=== PATIENT | male | born 1950 | race Caucasian/White ===

== ENCOUNTER 2022-12-12 18:20 | Emergency (ER) | payer MEDICARE, SELFPAY ==
[2022-12-12 18:28] VITALS: BP 187/95; PULSE 85; RESP 20; TEMP 36.8; O2SAT 98; BMI 28.3
--- NOTE | 2022-12-12 18:45 | ED.NURSE ---
16 Japanese Gastelum catheter placed in one insertion following sterile procedure. 850 clear yellow urine drained. Gastelum education provided.
[2022-12-12 19:02] LABS: Appearance Urine Clear (Clear); Bilirubin Urine Negative (Negative); Blood Urine 1+ (Negative); Color Urine Yellow (Yellow); Glucose Urine Trace (Negative); Ketones Urine Negative (Negative); Leukocyte Esterase Urine Negative (Negative); Nitrite Urine Negative (Negative); Protein Urine Negative (Negative); Specific Gravity Urine <= 1.005 (1.000-1.030); Urobilinogen Urine 0.2 (0.2-1.0)
[2022-12-12 19:19] LABS: RBC Urine 0-2 (0-2); WBC Urine 0-2 (0-5)
--- NOTE | 2022-12-12 20:14 | ED.MALEGU ---
HPI - Male Genitourinary General Date Seen: 12/12/22 Chief complaint: Urogenital Problems, Male Stated complaint: Unable to urinate Time Seen by Provider: 12/12/22 18:33 Source: patient Mode of arrival: ambulatory Limitations: no limitations History of Present Illness HPI Narrative: Patient is a very nice 72-year-old gentleman who presents here with a chief complaint can not being able to pee, this is been just for today, he has never before had this in the past, he does know why this occurred denies any dysuria frequency fevers chills or sweats he is not taking any [id number] cold medications, there has been no change in his more recent medications also. Just today he cannot pee. He does have a history of mild prostatism, gets up a couple times is P at night, but otherwise is okay. Related Data Home Medications Medication Instructions Recorded Confirmed atorvastatin 40 mg tablet 40 mg PO DAILY 12/12/22 12/12/22 lisinopril 5 mg tablet 5 mg PO DAILY 12/12/22 12/12/22 metoprolol tartrate 25 mg tablet 25 mg PO BID 12/12/22 12/12/22 Previous Rx's Medication Instructions Recorded tamsulosin 0.4 mg capsule (Flomax) 0.4 mg PO DAILY #14 caps 12/12/22 Allergies Allergy/AdvReac Type Severity Reaction Status Date / Time No Known Drug Allergies Allergy Verified 12/12/22 18:28 Review of Systems Status of ROS: Reports: 10 or more systems reviewed and unremarkable except as noted in History and below Exam Narrative: Exam Narrative: Patient is seen in room 5, he is in no apparent distress, a huge amount urine was in his bladder, bladder scan, it is now out, he has a catheter in place. He feels much improved, abdomen is otherwise soft there is no guarding, scar from previous right-sided inguinal hernia surgery is noted. Bowel sounds are normal no organomegaly no CVA tenderness, normal male genitalia. Const: Vital Signs, click to edit/add: Vital Signs - 24 hr 12/12/22 18:28 Temperature 98.2 F Pulse Rate [Pulse Oximeter] 85 Respiratory Rate 20 Blood Pressure [Ri ght Upper Arm] 187/95 H Pulse Oximetry 98 Oxygen Delivery Me thod Room Air Course Vital Signs Vital signs: Initial Vital Signs Temperature 98.2 F 12/12/22 18:28 Temperature Source Temporal Artery Scan 12/12/22 18:28 Pulse Rate 85 12/12/22 18:28 Respiratory Rate 20 12/12/22 18:28 Blood Pressure 187/95 H 12/12/22 18:28 Blood Pressure Mean 125 12/12/22 18:28 Pulse Oximetry 98 12/12/22 18:28 Oxygen Delivery Method Room Air 12/12/22 18:28 Vital Signs Temperature 98.2 F 12/12/22 18:28 Pulse Rate 85 12/12/22 18:28 Respiratory Rate 20 12/12/22 18:28 Blood Pressure 187/95 H 12/12/22 18:28 Pulse Oximetry 98 12/12/22 18:28 Oxygen Delivery Method Room Air 12/12/22 18:28 Temperature 98.2 F 12/12/22 18:28 Pulse Rate 85 12/12/22 18:28 Respiratory Rate 20 12/12/22 18:28 Blood Pressure 187/95 H 12/12/22 18:28 Pulse Oximetry 98 12/12/22 18:28 Oxygen Delivery Method Room Air 12/12/22 18:28 MDM - Male Genitourinary MDM Narrative Medical decision making narrative: I discussed with him that I would put him on Flomax, this will help him hopefully when the catheter comes out, he will need to call his primary care clinic to see if they get a minute do this otherwise some of the primary care clinics to not take 0 catheters, he will have to go downtown to Urology. I recommended that stays in for the next 3-4 days, there is no evidence of any infection on his UA. Medical Records Attestation: I reviewed the patient's medical records. Lab Data Attestation: I reviewed the patient's lab results. Labs: Lab Results 12/12/22 Range/Units 18:55 Urine Color Yellow (Yellow) Urine Appearance Clear (Clear) Urine pH 5.0 (5.0-8.5) Ur Specific [place] <= 1.005 (1.000-1.030) Urine Protein Negative (Negative) Urine Glucose (UA) Trace A (Negative) Urine Ketones Negative (Negative) Urine Blood 1+ A (Negative) Urine Nitrite Negative (Negative) Urine Bilirubin Negative (Negative) Urine Urobilinogen 0.2 (0.2-1.0) Ur Leukocyte Esterase Negative (Negative) Urine RBC 0-2 (0-2) Urine WBC 0-2 (0-5) Ur Squamous Epith Cells None (None-Few) Urine Bacteria None (None) Discharge Plan Discharge Clinical Impression: Acute retention of urine Patient Disposition: Home, Self-Care Condition: Stable Instructions: Urinary Retention in Men (ED), Gastelum Catheter Placement and Care (ED), Gastelum Catheter Removal (DC), How to Change a Catheter Drainage Bag (DC) Additional Instructions: Home rest use of medications as directed, the Flomax will hopefully helps somewhat shrink your prostate, please make an appointment with your primary care group, or alternatively a urologist up in the [facility], please note to some of the primary care groups such as [facility] do not take of catheters, and request that you go [facility] to the [facility] to see a urologist. Catheter should come out the next 3-4 days, Activity Level: No Restrictions Prescriptions: New tamsulosin [Flomax] 0.4 mg capsule 0.4 mg PO DAILY Qty: 14 2RF No Action atorvastatin 40 mg tablet 40 mg PO DAILY lisinopril 5 mg tablet 5 mg PO DAILY metoprolol tartrate 25 mg tablet 25 mg PO BID Follow Up/Referrals: Fabio Fox MD [Referring] - George Borges MD [Staff Physician] - Negrito Whelan MD [Staff Physician] - Jaspreet Pena MD [Referring] - Alen Merida MD [Referring] - Stand Alone Forms: [employer] Info Instructions
[2022-12-12] MEDS: TAMSULOSIN HCL 0.4 MG CAPSULE PO (20:46)
== END 2022-12-12 21:37 | disposition home or self-care (01) ==
LOC: ED 20:05
PROVIDERS: Emergency Provider Family Medicine; PCP Family Medicine
DX: R33.9 Retention of urine, unspecified (principal)
CPT/HCPCS: 51702; 81001; 99283; A9270

== ENCOUNTER 2022-12-21 05:09 | Emergency (ER) | payer MEDICARE, SELFPAY ==
[2022-12-21 05:16] VITALS: BP 183/93; PULSE 87; RESP 16; TEMP 36.7; O2SAT 99; BMI 28.3
--- NOTE | 2022-12-21 05:17 | ED.GENADULT ---
HPI - General Adult General Time Seen by Provider: 05:18 Date Seen: 12/21/22 Chief complaint: Urogenital Problems, Male Stated complaint: Unable to pass urine since midnight Time Seen by Provider: 12/21/22 05:13 Source: patient, RN notes reviewed and old records reviewed Mode of arrival: ambulatory Limitations: no limitations History of Present Illness HPI narrative: 72-year-old male who comes in with difficulty urinating. He says he has not been able to urinate since midnight. Patient was seen with urinary retention on December 12, at that time catheter was placed and patient was started on Flomax. Catheter was removed today with [place] [facility], patient was able to urinate when the catheter was 1st removed and then gradually has had more more difficulty initiating stream in with sensation of incomplete emptying, to the point now he feels bladder fullness is unable to void. Denies any medications, denies fever chills or chills, denies flank pain. No constipation, no sensation of pelvic fullness. Related Data Home Medications Medication Instructions Recorded Confirmed atorvastatin 40 mg tablet 40 mg PO DAILY 12/12/22 12/21/22 lisinopril 5 mg tablet 5 mg PO DAILY 12/12/22 12/21/22 metoprolol tartrate 25 mg tablet 25 mg PO BID 12/12/22 12/21/22 Previous Rx's Medication Instructions Recorded tamsulosin 0.4 mg capsule (Flomax) 0.4 mg PO DAILY #14 caps 12/12/22 Allergies Allergy/AdvReac Type Severity Reaction Status Date / Time No Known Drug Allergies Allergy Verified 12/12/22 18:28 PFSH [facility] Medical History (Updated 12/21/22 @ 05:17 by Hamlet Madden RN) Acute myocardial infarction ?I21.9 - Acute myocardial infarction, unspecified (ICD-10) CAD (coronary artery disease) ?I25.10 - Atherosclerotic heart disease of [place] coronary artery without angina pectoris (ICD-10) Hypertension ?I10 - Essential (primary) hypertension (ICD-10) Surgical History (Updated 12/21/22 @ 05:17 by Hamlet Madden RN) History of hernia repair ?Z98.890 - Other specified postprocedural states (ICD-10) ?Z87.19 - Personal history of other diseases of the digestive system (ICD-10) History of PTCA ?Z98.61 - Coronary angioplasty status (ICD-10) History of tonsillectomy ?Z90.89 - Acquired absence of other organs (ICD-10) Social History Smoking Status: Never smoker Second hand tobacco smoke exposure: No How often do you have a drink containing alcohol: never How often do you have six or more drinks on one occasion: Never AUDIT-C Alcohol total score: 0 Non-prescribed substance use: denies use Exam Narrative: Exam Narrative: General: well nourished , NAD Head: Atraumatic and normocephalic ENT: External ears and external nose are normal Eyes: Conjunctiva clear, pupils are equal reactive, external ocular motions are intact Neck: Full spontaneous range of motion of the neck Lungs: No respiratory distress Musculoskeletal: No tenderness or deformity Neurologic: No gross focal neurologic deficits Skin: No rashes Psych: Mood and affect are appropriate Abdomen: Distended with bladder palpable at the umbilicus Course Course Hospital Course: Patient seen and examined, prior records reviewed. Patient presents with urinary retention after having the catheter removed today. On exam, pleasant and appears little uncomfortable. Suprapubic tenderness with bladder palpable at the umbilicus. Bladder scan of about 600 mL. Catheter will be placed and patient will be discharged with this in place, should call Urology. Discharge Plan Discharge Prescriptions: No Action atorvastatin 40 mg tablet 40 mg PO DAILY lisinopril 5 mg tablet 5 mg PO DAILY metoprolol tartrate 25 mg tablet 25 mg PO BID tamsulosin [Flomax] 0.4 mg capsule 0.4 mg PO DAILY Qty: 14 2RF Follow Up/Referrals: Alen Do MD [Primary Care Provider] -
[2022-12-21 05:37] VITALS: BP 165/74; PULSE 78; RESP 16; TEMP 36.7; O2SAT 99
[2022-12-21 05:48] LABS: Appearance Urine Slightly Cloudy (Clear); Bilirubin Urine Negative (Negative); Blood Urine 2+ (Negative); Color Urine Yellow (Yellow); Glucose Urine 1+ (Negative); Ketones Urine Negative (Negative); Leukocyte Esterase Urine Negative (Negative); Nitrite Urine Negative (Negative); Protein Urine Negative (Negative); Urobilinogen Urine 0.2 (0.2-1.0); pH Urine 5.5 (5.0-8.5)
[2022-12-21 05:54] VITALS: BP 165/74; PULSE 78; RESP 16; TEMP 36.7
[2022-12-21 05:58] LABS: Bacteria Urine Few; Mucus Urine Few; RBC Urine 0-2 (0-2); Squamous Epithelial Cell Urine Few (None-Few); WBC Urine 0-2 (0-5)
== END 2022-12-21 05:55 | disposition home or self-care (01) ==
LOC: ED 05:39
PROVIDERS: Emergency Provider Family Medicine; PCP Family Medicine
DX: N13.9 Obstructive and reflux uropathy, unspecified (principal)
CPT/HCPCS: 51702; 81001; 87086; 99283

== ENCOUNTER 2022-12-21 10:00 | Emergency (ER) | payer MEDICARE, SELFPAY ==
--- NOTE | 2022-12-21 11:35 | ED.NURSE ---
cody draining well. pt decided to leave wtihout seeing
--- NOTE | 2022-12-21 11:45 | PC.NURSE ---
Brought pt in for triage assessment. Pt stated he was seen in ED this am and new ross catheter was placed. ED staff sent him home with securement device and pt forgot to secure catheter tubing. While standing up pt tubing tugged around arm of chair. Pt concerned catheter dislodged, pt denies pain. Discussed allowing time to see if catheter drains urine, clear normal urine noted in catheter bag and tubing. Pt agrees to allowing time and requests not to be seen if he is able to note new urine in catheter tubing. Pt approached nurse after 20 minutes to report that he would like to leave without being seen as he felt his issue resolved and normal urine was noted in tubing. Nurse requested pt to take time before he left to secure the tubing with securement device and ask if assistance was needed. Pt later reports tubing secured with no concerns. Nurse again asked pt to verbalize understanding regarding his choice to be seen and pt denied wanting to be seen in ED.
== END 2022-12-21 11:48 | disposition home or self-care (01) ==
PROVIDERS: Emergency Provider Student in an Organized Health Care Education/Training Program; PCP Family Medicine
DX: Z53.21 Procedure and treatment not carried out due to patient leaving prior to being seen by health care provider (principal)

== ENCOUNTER 2023-03-12 07:35 | Emergency (ER) | payer MEDICARE, SELFPAY ==
[2023-03-12 07:42] VITALS: BP 154/86; PULSE 68; RESP 18; TEMP 36.1; O2SAT 99; BMI 27.5
--- NOTE | 2023-03-12 08:12 | ED.NURSE ---
ua was obtained using aseptic technique at the catheter port. urine in bag obviously cloudy with some mucus settlement.
[2023-03-12 08:25] LABS: Appearance Urine Cloudy (Clear); Bilirubin Urine Negative (Negative); Color Urine Light yellow (Yellow); Glucose Urine Negative (Negative); Ketones Urine Negative (Negative)
[2023-03-12 08:26] LABS: Blood Urine 3+ (Negative); Specific Gravity Urine 1.005 (1.000-1.030)
[2023-03-12 08:27] LABS: Leukocyte Esterase Urine 3+ (Negative); Nitrite Urine Negative (Negative); Protein Urine Trace (Negative); Urobilinogen Urine 0.2 (0.2-1.0)
[2023-03-12 08:35] LABS: Bacteria Urine Many; RBC Urine 25-50 (0-2); Squamous Epithelial Cell Urine Few (None-Few); WBC Urine >100 (0-5)
--- NOTE | 2023-03-12 08:47 | ED_ITS ---
HPI - General Adult General Date Seen: 03/12/23 Chief complaint: Urogenital Problems, Male Stated complaint: has catheter and concerned of bladder infection Time Seen by Provider: 03/12/23 08:01 Source: patient Mode of arrival: ambulatory Limitations: no limitations History of Present Illness HPI narrative: Patient is a 72-year-old male who has had an indwelling catheter for a couple of months now secondary to urinary retention. He is deciding whether not to have surgery. Over the past couple of days since having a new catheter placed, he has developed cloudy urine, little bit of pain over the bladder. Has not had any fevers or chills although sometimes he feels warm. No flank pain or vomiting. Concerned about possible infection. No hematuria. Related Data Home Medications Medication Instructions Recorded Confirmed atorvastatin 40 mg tablet 40 mg PO DAILY 12/12/22 12/21/22 lisinopril 5 mg tablet 5 mg PO DAILY 12/12/22 12/21/22 metoprolol tartrate 25 mg tablet 25 mg PO BID 12/12/22 12/21/22 Previous Rx's Medication Instructions Recorded tamsulosin 0.4 mg capsule (Flomax) 0.4 mg PO DAILY #14 caps 12/12/22 cephalexin 500 mg capsule 500 mg PO QID #28 caps 03/12/23 Allergies Allergy/AdvReac Type Severity Reaction Status Date / Time No Known Drug Allergies Allergy Verified 12/12/22 18:28 Review of Systems Status of ROS: Reports: 6 or more systems reviewed and unremarkable except as noted in History and below PFSH PFS Medical History Acute myocardial infarction ?I21.9 - Acute myocardial infarction, unspecified (ICD-10) CAD (coronary artery disease) ?I25.10 - Atherosclerotic heart disease of [place] coronary artery without angina pectoris (ICD-10) Hypertension ?I10 - Essential (primary) hypertension (ICD-10) Surgical History History of PTCA ?Z98.61 - Coronary angioplasty status (ICD-10) History of hernia repair ?Z98.890 - Other specified postprocedural states (ICD-10) ?Z87.19 - Personal history of other diseases of the digestive system (ICD-10) History of tonsillectomy ?Z90.89 - Acquired absence of other organs (ICD-10) Social History Smoking Status: Current some day smoker What tobacco products do you use: cigars Do you use any of these nicotine containing products: None Second hand tobacco smoke exposure: No How often do you have a drink containing alcohol: 4 or more times a week How many standard drinks containing alcohol do you have on a typical day: 1 or 2 How often do you have six or more drinks on one occasion: Never AUDIT-C Alcohol total score: 4 Non-prescribed substance use: denies use service: No Exam Narrative: Exam Narrative: Vital signs reviewed. In general, an alert, well-appearing elderly male. Abdomen soft nontender. Back no CVA tenderness. Skin is warm and dry. Catheter in place with purulent-appearing urine. Const: Vital Signs, click to edit/add: Vital Signs - 24 hr 03/12/23 07:42 Temperature 97 F L Pulse Rate [Pulse Oximeter] 68 Respiratory Rate 18 Blood Pressure [Le ft Upper Arm] 154/86 H Pulse Oximetry 99 Oxygen Delivery Me thod Room Air Documenting provider has reviewed patient's vital signs: yes Course Course Hospital Course: UA was sent, consistent with infection with greater than 100 white blood cells and 25-50 red blood cells, many bacteria. Certainly appears infected in the catheter. I recommended replacement of the catheter, antibiotics. We discussed that ideally a decision would be made as to management of the underlying problem so that he does not need to keep the catheter in permanently. Return for worsening symptoms of infection such as fevers, chills, vomiting, flank pain. Culture pending. Vital Signs Vital signs: Initial Vital Signs Temperature 97 F L 03/12/23 07:42 Temperature Source Temporal Artery Scan 03/12/23 07:42 Pulse Rate 68 03/12/23 07:42 Pulse Rhythm Regular 03/12/23 07:42 Respiratory Rate 18 03/12/23 07:42 Blood Pressure 154/86 H 03/12/23 07:42 Blood Pressure Mean 108 H 03/12/23 07:42 Blood Pressure Position Standing 03/12/23 07:42 Pulse Oximetry 99 03/12/23 07:42 Oxygen Delivery Method Room Air 03/12/23 07:42 Vital Signs Temperature 97 F L 03/12/23 07:42 Pulse Rate 68 03/12/23 07:42 Respiratory Rate 18 03/12/23 07:42 Blood Pressure 154/86 H 03/12/23 07:42 Pulse Oximetry 99 03/12/23 07:42 Oxygen Delivery Method Room Air 03/12/23 07:42 Temperature 97 F L 03/12/23 07:42 Pulse Rate 68 03/12/23 07:42 Respiratory Rate 18 03/12/23 07:42 Blood Pressure 154/86 H 03/12/23 07:42 Pulse Oximetry 99 03/12/23 07:42 Oxygen Delivery Method Room Air 03/12/23 07:42 Medical Decision Making Lab Data Labs: Lab Results 03/12/23 Range/Units 08:10 Urine Color Light yellow (Yellow) Urine Appearance Cloudy A (Clear) Urine pH 6.0 (5.0-8.5) Ur Specific [place] 1.005 (1.000-1.030) Urine Protein Trace A (Negative) Urine Glucose (UA) Negative (Negative) Urine Ketones Negative (Negative) Urine Blood 3+ A (Negative) Urine Nitrite Negative (Negative) Urine Bilirubin Negative (Negative) Urine Urobilinogen 0.2 (0.2-1.0) Ur Leukocyte Esterase 3+ A (Negative) Urine RBC 25-50 A (0-2) Urine WBC >100 A (0-5) Ur Squamous Epith Cells Few (None-Few) Urine Bacteria Many A (None) Discharge Plan Discharge Clinical Impression: Urinary tract infection Patient Disposition: Home, Self-Care Condition: Stable Instructions: Catheter-associated Urinary Tract Infection (ED) Additional Instructions: Antibiotic as prescribed. Return for new symptoms such as fever, shaking chills, vomiting, flank pain. We will call if culture reveals a need for antibiotic change. Urology follow-up as planned. Prescriptions: New cephalexin 500 mg capsule 500 mg PO QID Qty: 28 0RF No Action atorvastatin 40 mg tablet 40 mg PO DAILY lisinopril 5 mg tablet 5 mg PO DAILY metoprolol tartrate 25 mg tablet 25 mg PO BID tamsulosin [Flomax] 0.4 mg capsule 0.4 mg PO DAILY Qty: 14 2RF Follow Up/Referrals: Alen Do MD [Primary Care Provider] - Stand Alone Forms: [employer] Info Instructions
--- NOTE | 2023-03-12 09:00 | ED.NURSE ---
Ross catheter was replaced with #18 ross -easily replaced. was given new leg strap and does not use a leg bag.
== END 2023-03-12 09:25 | disposition home or self-care (01) ==
PROVIDERS: Emergency Provider Emergency Medicine; PCP Family Medicine
DX: N39.0 Urinary tract infection, site not specified (principal)
CPT/HCPCS: 51702; 81001; 87086; 87186; 99283; 99284

== ENCOUNTER 2024-06-27 08:50 | Emergency (ER) | payer MEDICARE, SELFPAY ==
[2024-06-27] VITALS (10 sets, daily range): BP systolic 118–153; BP diastolic 85–99; PULSE 57–76; RESP 20; TEMP 36.2; O2SAT 92–99; BMI 27.5
--- NOTE | 2024-06-27 09:37 | CRLHL7_ITS ---
For Patients: As a result of the Century Cures Act, medical imaging exams and procedure reports are released immediately into your electronic medical record. You may view this report before your referring provider. If you have questions, please contact your health care provider. Indication: Orthopnea Technique: Chest 2 views Comparison: None Findings/Impression: Cardiovascular and mediastinum: Normal heart size with atherosclerotic calcification. Lungs and pleural spaces: Trace bilateral pleural effusions with pulmonary cephalization and reticular interstitial prominence consistent with pulmonary edema. Bones and soft tissues: No significant findings. Dictated by Johnny Sanchez MD @ 06/27/2024 9:59:24 AM (Electronically Signed)
--- NOTE | 2024-06-27 09:38 | ED_ITS ---
HPI - General Adult General Chief complaint: Shortness of Breath/Dyspnea Stated complaint: Shortness of breath Time Seen by Provider: 06/27/24 09:13 History of Present Illness HPI narrative: This 73-year-old male comes in reporting episodes of shortness of breath that occur a couple times a week for the past couple months. These always occur at night when laying down. He states that he feels like it is difficult to take a good breath. He gets relief if he gets up and walks around. He does not report any chest pain, nausea, vomiting, lightheadedness , or diaphoresis. He does not have any exercise intolerance. He does have a cardiac history with stents placed going back 18 years ago. Related Data Home Medications ?Medication ?Instructions ?Recorded ?Confirmed atorvastatin 40 mg tablet 40 mg PO DAILY 12/12/22 12/21/22 lisinopril 5 mg tablet 5 mg PO DAILY 12/12/22 12/21/22 metoprolol tartrate 25 mg tablet 25 mg PO BID 12/12/22 12/21/22 Previous Rx's ?Medication ?Instructions ?Recorded tamsulosin 0.4 mg capsule (Flomax) 0.4 mg PO DAILY #14 caps 12/12/22 cephalexin 500 mg capsule 500 mg PO QID #28 caps 03/12/23 furosemide 20 mg tablet (Lasix) 20 mg PO DAILY #10 tabs 06/27/24 Allergies Allergy/AdvReac Type Severity Reaction Status Date / Time No Known Drug Allergies Allergy Verified 12/12/22 18:28 Review of Systems Status of ROS: Reports: 10 or more systems reviewed and unremarkable except as noted in History and below Narrative: Constitutional: No fevers, no weight gain or loss. Eyes: No discharge. No vision changes. HENT: No congestion, no sore throat, no ear pain. Cardiovascular: No chest pain, no palpitations. Respiratory: No wheezes, no cough. Orthopnea as described above. Gastrointestinal: No abdominal pain, no vomiting, no diarrhea. Genitourinary: No dysuria, no hematuria. Musculoskeletal: Normal range of motion. Skin: No rashes, no pruritis. Neurological: No dizziness, weakness, sensory change, speech change. Endo/Heme/Allergies: No bruising or bleeding. No polydipsia. Pysch: no suicidality, no anxiety, no insomnia. All other systems reviewed and are negative. [facility] Medical History Acute myocardial infarction ?I21.9 - Acute myocardial infarction, unspecified (ICD-10) CAD (coronary artery disease) ?I25.10 - Atherosclerotic heart disease of [place] coronary artery without angina pectoris (ICD-10) Hypertension ?I10 - Essential (primary) hypertension (ICD-10) Surgical History History of PTCA ?Z98.61 - Coronary angioplasty status (ICD-10) History of hernia repair ?Z98.890 - Other specified postprocedural states (ICD-10) ?Z87.19 - Personal history of other diseases of the digestive system (ICD-10) History of tonsillectomy ?Z90.89 - Acquired absence of other organs (ICD-10) Social History Smoking Status: Current some day smoker What tobacco products do you use: cigars Do you use any of these nicotine containing products: None Second hand tobacco smoke exposure: No How often do you have a drink containing alcohol: 4 or more times a week How many standard drinks containing alcohol do you have on a typical day: 1 or 2 How often do you have six or more drinks on one occasion: Never AUDIT-C Alcohol total score: 4 Non-prescribed substance use: denies use service: No Exam Narrative: Exam Narrative: Constitutional: Well-developed, well-nourished, no acute distress. HEENT: Normocephalic, atraumatic. Neck: Normal range of motion. Nontender. Supple. Heart: Regular. No murmurs. Normal rate. Intact distal pulses. Lungs: Clear to auscultation. No chest discomfort. No wheezes, rhonchi, or rales. Abdomen: Normal bowel sounds. Nontender. No rebound tenderness. Genitalia: Deferred. Back: No midline tenderness. Normal range of motion. Extremities: Normal range of motion. No injury. Mild pedal edema. Skin: Intact. No rash. Warm. No erythema or pallor. Neurologic: No altered sensation. No weakness. Alert and oriented. Psychiatric: No suicidality. No anxiety or depression. No insomnia. Nursing notes and vitals signs are reviewed. Const: Vital Signs, click to edit/add: Vital Signs - 24 hr 06/27/24 09:03 06/27/24 09:24 06/27/24 09:30 Temperature 97.2 F L Pulse Rate 76 69 Pulse Rate [Pulse Oximeter] 72 Respiratory Rate 20 Blood Pressure Blood Pressure [Le ft Upper Arm] 153/92 H Pulse Oximetry 97 99 97 Oxygen Delivery Me thod Room Air 06/27/24 09:33 06/27/24 09:33 06/27/24 09:34 Temperature Pulse Rate 70 70 67 Pulse Rate [Pulse Oximeter] Respiratory Rate Blood Pressure 140/99 H 140/99 H Blood Pressure [Le ft Upper Arm] Pulse Oximetry 98 98 96 Oxygen Delivery Me thod 06/27/24 10:00 06/27/24 10:30 06/27/24 10:35 Temperature Pulse Rate 69 58 L 60 Pulse Rate [Pulse Oximeter] Respiratory Rate Blood Pressure Blood Pressure [Le ft Upper Arm] Pulse Oximetry 94 94 92 Oxygen Delivery Me thod 06/27/24 10:36 06/27/24 10:37 Temperature Pulse Rate 59 L 57 L Pulse Rate [Pulse Oximeter] Respiratory Rate Blood Pressure 118/85 Blood Pressure [Le ft Upper Arm] Pulse Oximetry 97 96 Oxygen Delivery Me thod Course Vital Signs Vital signs: Initial Vital Signs Respiratory Effort Normal 06/27/24 08:59 Respiratory Depth Normal 06/27/24 08:59 Respiratory Pattern Normal 06/27/24 08:59 Vital Signs Temperature 97.2 F L 06/27/24 09:03 Pulse Rate 72 06/27/24 09:03 Respiratory Rate 20 06/27/24 09:03 Blood Pressure 153/92 H 06/27/24 09:03 Pulse Oximetry 97 06/27/24 09:03 Oxygen Delivery Method Room Air 06/27/24 09:03 Temperature 97.2 F L 06/27/24 09:03 Pulse Rate 57 L 06/27/24 10:37 Respiratory Rate 20 06/27/24 09:03 Blood Pressure 118/85 06/27/24 10:37 Pulse Oximetry 96 06/27/24 10:37 Oxygen Delivery Method Room Air 06/27/24 09:03 Medical Decision Making MDM Narrative Medical decision making narrative: This patient comes in reporting episodes of orthopnea that is relieved with getting up in the night. These have been happening a couple times a week roughly over the past couple months. He does not have any chest pain, nausea, vomiting, lightheadedness, or diaphoresis. He does not report any exercise intolerance. Chest x-ray today does show trace elements of pulmonary edema. He does have some mild pedal edema also. Lab results are all reassuring. His EKG is normal and B type nitrate peptide and troponin are both in normal range. These results are reassuring to the patient. He is okay to be discharged home. I did provide a prescription for 10 tablets of Lasix with hopes that a short- term of a diarrhetic will help his symptoms. I did also explain there is typically an anxiety component when a person feel short of breath. If not improved he should follow up with his primary physician for ongoing management. Lab Data Labs: Lab Results 06/27/24 Range/Units 10:00 WBC 7.98 (4.50-11.00) K/uL RBC 4.51 (4.30-5.90) m/uL Hgb 14.5 (13.5-17.5) gm/dL Hct 42.1 (37.0-53.0) % MCV 93 (80-100) fL MCH 32 (26-34) pg MCHC 34 (32-36) gm/dL RDW Coeff of Chao 11.9 (11.5-15.5) % Plt Count 193 (140-440) K/uL Neut % (Auto) 65.9 (42.0-72.0) % Lymph % (Auto) 21.7 (20-44) % [place] % (Auto) 8.9 (0.0-11.0) % Eos % (Auto) 2.4 (0.0-7.0) % Baso % (Auto) 0.6 (0.0-3.0) % Neut # (Auto) 5.26 (1.7-7.0) K/uL Lymph # (Auto) 1.73 (0.90-2.90) K/uL [place] # (Auto) 0.70 (0.00-0.90) K/UL Eos # (Auto) 0.19 (0.00-0.50) K/uL Baso # (Auto) 0.05 (0.00-0.30) K/uL Abs Immat Gran (auto) 0.04 (0.00-0.30) K/uL Imm/Tot Granulo (auto) 0.5 % Sodium 137 (135-149) mmol/L Potassium 4.1 (3.6-5.1) mmol/L Chloride 102 (96-114) mmol/L Carbon Dioxide 26 (20-32) mmol/L Anion Gap 9 (7-15) mEq/L BUN 14 (7-30) mg/dL Creatinine 0.8 (0.5-1.5) mg/dL Estimated Creat Clear 58.08 Estimated GFR 94 ml/min Glucose 184 H (60-115) mg/dL Calcium 9.5 (8.4-10.6) mg/dL NT-Pro-B Natriuret Pep 1000 pg/mL POC Troponin I 0.01 (0.01-0.04) ng/ml Imaging Data Chest x-ray: Radiologist's impression: Cardiovascular and mediastinum: Normal heart size with atherosclerotic calcification. Lungs and pleural spaces: Trace bilateral pleural effusions with pulmonary cephalization and reticular interstitial prominence consistent with pulmonary edema. Bones and soft tissues: No significant findings. ECG Data Attestation: I personally reviewed and interpreted this ECG as follows: Interpretation: Normal sinus rhythm. Rate is 66 beats per minute. There are no ST or T-wave abnormalities. Discharge Plan Discharge Clinical Impression: Orthopnea Additional Instructions: Take medication as prescribed. Follow up with primary physician for ongoing management. Return if worsening. Prescriptions: New furosemide [Lasix] 20 mg tablet 20 mg PO DAILY Qty: 10 2RF No Action atorvastatin 40 mg tablet 40 mg PO DAILY lisinopril 5 mg tablet 5 mg PO DAILY metoprolol tartrate 25 mg tablet 25 mg PO BID tamsulosin [Flomax] 0.4 mg capsule 0.4 mg PO DAILY Qty: 14 2RF cephalexin 500 mg capsule 500 mg PO QID Qty: 28 0RF Follow Up/Referrals: Alen Do MD [Primary Care Provider] - Stand Alone [facility] Inst[facility]
--- OUTSIDE RECORDS SUMMARY | 2024-06-27 09:44 | XMS_ITS | Clinical Summary ---
Author Organization [employer] Address [place], [place] [address] Care Team Providers Care Test Baker Name Role Phone JohntelAlen MD Primary Care Provider + Allergies No known active allergies Medications Medication Sig Dispensed Refills Start Date End Date Status aspirin enteric coated 81 mg tabletIndications:Ac [place] myocardial infarction of other inferior wall, initial episode of care Take 1 tablet by mouth once daily with a meal. 0 02/04/2014 Active multivitamins-minera ls-lutein (CENTRUM SILVER) 0.4-300-250 mg-mcg-mcg tab Take 1 tablet by mouth once daily. 0 04/18/2019 Active medication order [employer] immune formula, 1 tablet every other day 0 05/29/2020 Active nitroglycerin (NITROSTAT) 0.4 mg sublingual tabletIndications:Co ronary artery disease involving [place] si[place] coronary artery of ass[place] sioux heart without angina pectoris Place 1 Tablet (0.4 mg) under the tongue every 5 minutes if needed (Place 1 tablet under tongue every 5 min as needed). 25 Tablet 2 08/12/2022 Active metoprolol tartrate (LOPRESSOR) 25 mg tabletIndications:Hy pertension, unspecified type Take 1 Tablet (25 mg) by mouth two times daily. 180 Tablet 3 02/07/2024 Active lisinopriL (PRINIVIL; ZESTRIL) 10 mg tabletIndications:HT N (hypertension),BPH with urinary obstruction Take 1 Tablet (10 mg) by mouth once daily. 90 Tablet 3 02/07/2024 Active atorvastatin (LIPITOR) 40 mg tabletIndications:Co ronary artery disease involving [place] coronary artery of [place] heart without angina pectoris TAKE 1 TABLET(40 MG) BY MOUTH EVERY DAY 90 Tablet 3 02/07/2024 Active Active Problems Problem Noted Date Diagnosed Date Prediabetes 01/17/2012 CAD (coronary artery disease) 11/24/2009 Other and unspecified hyperlipidemia 10/13/2006 Overview (10/13/2006): - current lipid status unknown HTN (hypertension) Resolved Problems Problem Noted Date Diagnosed Date Resolved Date Acute myocardial infarction of other inferior wall, initial episode of care 10/13/2006 08/12/2022 Overview (10/13/2006): - Inferior STEMI - to director of cardiac cath lab 10/13/06: s/p PCI with BMS to RCA, angioplasty of rPAV, rPL2 - rPL1 distal occlusion could not be crossed - Other angio findings: mid lad 50-60%, prox D1 85%, ostial D2 40% 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 10/13/2006 08/12/2022 Overview (10/13/2006): - 10/13/06: EF 40% with severe hypokinesis by LV gram Immunizations Name Administration Dates Next Due AMB Influenza, IIV3 (Age >=3 years)(Flu Clinic Only) 07/19/2013,06/29/2012,06/14/2011 AMB Influenza, IIV4 PF (=>6 mos Flulaval,Fluzone Fluarix)(Flu Clinic Only) 07/07/2018 COVID-19 vaccine ([place] NTech 30mcg/0.3mL) 12YO+ BIVALENT PF, MDV 08/12/2022 COVID-19 vaccine ([place] NTech 30mcg/0.3mL) PF, MDV 11/10/2021,06/16/2021,04/28/2021 Influenza A (H1N1), Inactivated 11/24/2009 Influenza A (H1N1), Inactiva claudio (Age >=3 Years) 11/24/2009 Influenza, High-dose Inactivated 05/30/2017 Influenza, IIV3 (Age 6-35 mos) 06/14/2011,2008 Influenza, IIV3 (Age >=3 years) 06/03/20 10,06/12/2008,07/17/2007,2005,07/14/2005 Influenza, IIV4 05/17/2016,07/17/2015 Influenza, Inactivated AIIV4 (Age 65+ Years) Preserv Free 08/12/2022,06/24/2021,05/29/2020 Pneumococcal Poly,23-Valent (Pneumovax) 05/29/2020,10/17/2008 Pneumococcal conj 13-Valent (Prevnar 13) 04/18/2019 Td (Age >=7 Years) 04/18/2019 Tdap 10/17/2008 Zoster (Shingrix-RZV, recombinant) 10/01/2019, Family History Medical History Relation Name Comments Psychiatric illness Brother Phil Bipolar Heart Disease Father age 66 of ID, in his sleep Heart Disease Mother Tracee Other Mother Tracee age 82, ru ptured diverticulitis Psychiatric illness Mother Tracee Englei on Relation Name Status Comments Brother Phil Father Mother Tracee Social History Tobacco Use Types Packs/Day Years Used Date Smoking Tobacco: Some Days Cigars Smokeless Tobacco: Never Tobacco Cessation:Ready to Q uit: No; Counseling Given: Yes Comments:Occ, 1 per week Alcohol Use Standard Drinks/Week Comments Yes 13.3 (1 standard drink = 0.6 oz pure alcohol) 14 drinks per week PHQ-2 Answer Date Recorded PHQ-2 TOTAL SCORE 2 02/07/2024 Social Connections Answer Date Recorded Frequency of Communication with Friends and Fami ly Not on file 05/13/2024 Financial Resource Strain Answer Date R ecorded Difficulty of Paying Living Expenses 3 05/05/2023 Difficulty of Paying Living Expenses Not on file 05/05/2023 Food Insecurity Answer Date Recorded Worried About Running Out of Food in the Last Ye ar 1 05/05/2023 Transportation Needs Answer Date Record ed Lack of Transportation (Medical) 1 05/05/2023 Housing Stability Answer Date Recorded Unable to Pay for Housing in the Last Year 1 05/05/2023 Sex and Gender Information Value Date Recorded Sex Assigned at Not on file Gender Identity Not on file Sexual Orientation Not on file Obstetrics History Last Filed Vital Signs Vital Sign Reading Time Taken Comments Blood Pressure 138/84 02/07/2024 10:40 AM CDT Pulse 70 02/07/2024 9:36 AM CDT Temperature 36.9 ??C (98.4 ??F) 02/07/2024 9:36 AM CD T Respiratory Rate 16 03/31/2023 10:56 AM CDT Oxygen Saturation 99% 02/07/2024 9:36 AM CDT Inhaled Oxygen Concentration - - Weight 73.7 kg (162 lb 8 oz) 02/07/2024 9:36 AM CDT Height 160.8 cm (5' 3.3) 02/07/2024 9:36 AM CDT Body Mass Index 28.51 02/07/2024 9:36 AM CDT Plan of Treatment Health Maintenance Due Date Last Done Comments Fecal testing non-DNA (FIT,FOBT,iFOBT) for age 45-75 04/19/2020 04/19/2019, 04/14/2016, 03/18/2015 COVID-19 vaccine series ( season) 2024 08/12/2022, 11/10/2021, 06/16/2021, Additional history exists Influenza for age 65+ 04/29/2024 08/12/2022 , 06/24/2021, 05/29/2020, Additional history exists BMI (ht and wt on same day) for age 18+ 02/06/2025 02/07/2024, 01/04/2023, 08/12/2022, Additional history exists Depression screening for age 12+ 02/06/2025 02/07/2024, 08/13/2022, 08/12/2022, Additional history exists Medicare Wellness for age 65+ 02/07/2025, 08/12/2022, 06/24/2021 Lipids for age 45-75 02/06/2029 02/07/2024, 08/13/2022, 05/29/2020, Additional history exists Tetanus booster 04/18/2029 04/18/2019, 10/17/2008 Hepatitis C screening for ag e 18-79 Completed 10/15/2006 Tdap Completed 10/17/2008 Zoster (shingles) series for age 50+ Completed 10/01/2019, 07/23/2019 Pneumococcal series for age 65+ Completed 05/29/2020, 04/18/2019, 10/17/2008 AAA screening age 65-74 Completed 09/06/2022 Procedures Procedure Name Priority Date/Time Associated Diagnosis Comments LIPID PANEL W REFLEX MEASURED LDL Routine 02/07/2024 10:48 AM CDT Coronary artery disease involving [place] coronary artery without angina pectoris, unspecified whether [place] and sioux or transplanted heart US ABD AORTA SCREENING Routine 09/06/2022 10:18 AM MEDICAL MANAGEMENT SPECIALIST Personal history of tobacco use, presenting hazards to health OCCULT BLOOD IFOBT STOOL Routine 04/19/2019 10:00 AM CDT Screening for colon cancer ANTI HCV Early AM 10/15/2006 6:25 AM MEDICAL MANAGEMENT SPECIALIST from Last 3 Months or Most Recently Relevant to Health Maintenance Results * LIPID PANEL W REFLEX MEASURED LDL (02/07/2024 10:48 AM CDT) CHOLESTEROL,TOTAL 153 100 - 199 mg/dL 02/07/2024 5:33 PM CDT [facility] Comment: Cholesterol, Total Reference Ranges Desirable <200 mg/dL Borderline 200-239 mg/dL High >=240 mg/dL TRIGLYCERIDES 123 <150 mg/dL 02/07/2024 5:33 PM CDT [facility] HDL CHOLESTEROL 44 >40 mg/dL 5:33 PM CDT [facility] NON-HDL CHOLESTEROL 109 <145 mg/dl 02/07/2024 5:33 PM CDT [facility] CHOL/HDL RATIO 3.48 <4.50 02/07/2024 5:33 PM CDT [facility] LDL CHOLESTEROL 84 <=130 mg/dL 02/07/2024 5:33 PM CDT [facility] VLDL CHOLESTEROL 25 <=30 mg/dL 02/07/2024 5:33 PM CDT [facility] PROVIDER ORDERED STATUS RANDOM 02/07/2024 5:33 PM CDT [facility] Blood BLOOD SPECIMEN / Unknown Venipuncture / Unknown 02/07/2024 10:48 AM CDT 02/07/2024 10:50 AM CDT Alen Do MD CHEMISTRY [facility] [address] [place] [address], [place] * US ABD AORTA SCREENING [[id number]] (09/06/2022 10:18 AM MEDICAL MANAGEMENT SPECIALIST) Anatomical Region Laterality Modality Abdomen, AORTA Ultrasound 09/06/2022 4:09 PM MEDICAL MANAGEMENT SPECIALIST Narrative 09/06/2022 4:09 PM MEDICAL MANAGEMENT SPECIALIST For Patients: ??As a result of the Cures Act, medical imaging exams and procedure reports are released immediately into your electronic medical record. ??You may view this report before your referring provider. ??If you have questions, please contact your health care provider. Examination: US abdominal aorta Indication: Abdominal aortic aneurysm screening. Technique: Hunter scale and color Doppler images of the aorta and common iliac arteries are obtained. Comparison: None Findings: Proximal aorta: 2.1 x 2.0 cm Mid aorta: 1.8 x 1.7 cm Distal aorta: 1.9 x 1.7 cm Right common iliac artery: 1.4 x 1.5 cm Left common iliac artery: 1.2 x 1.2 cm Impression: No abdominal aortic aneurysm. Dictated by Jaspreet Lemos MD @ Aug ??9 2022 ??4:09PM (Electronically Signed) ?? Procedure Note Jaspreet Lemos MD - 09/06/2022 For Patients: As a result of the Cures Act, medical imagingexams and procedure reports are released immediately into your electronicmedical record. You may view this report before your referring provider.If you have questions, please contact your health care provider. Examination: US abdominal aorta Indication: Abdominal aortic aneurysm screening. Technique: Hunter scale and color Doppler images of the aorta and common iliac arteriesare obtained. Comparison: None Findings: Proximal aorta: 2.1 x 2.0 cm Mid aorta: 1.8 x 1.7 cm Distal aorta: 1.9 x 1.7 cm Right common iliac artery: 1.4 x 1.5 cm Left common iliac artery: 1.2 x 1.2 cm Impression: No abdominal aortic aneurysm. Dictated by Jaspreet Lemos MD @ Sep 06 2022 4:09PM (Electronically Signed) Alen Do MD * OCCULT BLOOD IFOBT STOOL (04/19/2019 10:00 AM CDT) STOOL BLOOD ,IFOBT Negative Negative 04/19/2019 11:00 AM CDT [facility] Stool STOOL SPECIMEN / Unknown Non-Blood / Unknown 04/19/2019 10:00 AM CDT 04/19/2019 10:52 AM CDT Alen Do MD LABORATORY [facility] [address] [place] [address], * ANTI HCV (10/15/2006 6:25 AM MEDICAL MANAGEMENT SPECIALIST) ANTI HCV Non-reactiv e [facility] Blood specimen (specimen) BLOOD SPECIMEN / Unknown 10/15/2006 6:25 AM MEDICAL MANAGEMENT SPECIALIST 10/14/2006 10:00 PM MEDICAL MANAGEMENT SPECIALIST Narrative [facility] - 10/19/2006 1:19 PM MEDICAL MANAGEMENT SPECIALIST Testing Performed By [place], [place] Dagoberto Francois MD SEND OUTS [facility] [address] [place] [address] from Last 3 Months or Most Recently Relevant to Health Maintenance Advance Directives * Full Code (Latest Code Status on File) Date Activated Date Inactivated Comments 10/13/2006 6:45 AM 10/15/2006 4:17 PM Care Teams Test Baker Relationship Specialty Start Date End Date Votel, Alen Lua MD [address] [place] [address] PCP - General Family Practice 05/18/23
--- OUTSIDE RECORDS SUMMARY | 2024-06-27 09:44 | XMS_ITS | Continuity of Care Document ---
Author Organization [facility] Address [address] [place] [address] Care Team Providers Care Videographer Name Role Phone SARAHTESHADIA Nguyen Primary Care Provider Assessment No assessment recorded. Plan of Treatment Reminders Order Date Submit Date Provider Last Modified By Organization Details Last Modified Time Details Appointments None record ed. Lab None record ed. Referral None record ed. Procedures None record ed. Surgeries None record ed. Imaging None record ed. Medication Orders None record ed. Patient TargetsNo targets recorded. Patient InstructionsNo instructions recorded. Reason for Referral None Reported. Problems Name Problem SNOMED Code Status Onset Date Resolution Date Notes Provider Name and Address Organization Details Recorded Time Retention of urine [id number] Active [address] [facility] 16:25:45 Problem Notes None recorded. Procedures Surgical History Date Name Laterality Status Provider Name and Address Organization Details Recorded Time 06/22/20 24 Urethral Catheter Change completed Lina Sheppard [facility] 06/22/2024 14:33:38 05/08/20 24 Urethral Catheter Change completed Lina Sheppard [facility] 05/08/2024 12:43:02 03/15/20 24 Urethral Catheter Change completed Lina Sheppard [facility] 03/15/2024 16:00:43 01/25/20 24 Urethral Catheter Change completed Lina Sheppard [facility] 01/25/2024 12:12:09 12/26/19 24 MIRANDA CHANGE completed Hank Winston [facility] 12/26/2023 13:27:37 11/24/19 24 Urethral Catheter Change completed Lina Sheppard [facility] 11/24/2023 11:44:32 10/21/19 24 Urethral Catheter Change completed [facility] 10/21/2023 11:24:52 09/21/19 24 Urethral Catheter Change completed Lilo Burgos [facility] 09/21/2023 15:24:46 08/08/20 23 Urethral Catheter Change completed Delmsi Griffith [facility] 08/08/2023 14:43:23 08/08/20 23 Urodynamic Studies completed Delmis Griffith [facility] 08/08/2023 15:24:47 07/08/20 23 Urethral Catheter Change completed Lina Sheppard [facility] 07/08/2023 12:32:52 06/03/20 23 Urethral Catheter Change completed [facility]ppard [facility] 06/03/2023 11:57:08 05/03/20 23 Urethral Catheter Change completed Gabriella Wood [facility] 05/03/2023 11:37:32 04/04/20 23 Urethral Catheter Change completed L[facility] Sheppard [facility] 04/04/2023 16:28:15 03/07/20 23 Urethral Catheter Change completed Juanpablo Gaspar [facility] 03/07/2023 11:20:01 02/08/20 23 Urethral Catheter Change completed Gabriella Wood [facility] 02/07/2023 14:20:13 12/21/19 23 Fill and Pull/Voiding Trial/TOV completed Anne Palencia [facility] 12/20/2022 13:04:39 repair of right inguinal hernia completed Alma Vallejo [facility] 09/21/2023 12:44:02 Imaging Results None recorded. Procedure Notes None recorded. Medical Equipment None Reported. Allergies No known drug allergies Medications Name Sig Start Date Stop Date Status Note LastModified by Organization Details LastModified Time atorvastatin 40 mg tablet active Not Available Not Available Not Available ciprofloxaci n 500 mg tablet 09/21 completed Not Available Not Available Not Available amoxicillin 875 mg tablet TAKE 1 TABLET BY MOUTH TWICE DAILY UNTIL ALL TAKEN active Not Available Not Available No t Available tamsulosin 0.4 mg capsule TAKE 1 CAPSULE BY MOUTH EVERY DAY 09/21 completed Not Available Not Available Not Available cephalexin 500 mg capsule TAKE 1 CAPSULE BY MOUTH FOUR TIMES DAILY 09/21 completed Not Available Not Available Not Available lisinopril 10 mg tablet active Not Available Not Available Not Available nitroglyceri n 0.4 mg sublingual tablet SIT DOWN AND PLACE 1 TABLET UNDER THE TONGUE EVERY 5 MINUTES IF NEEDED. MAX OF 3 TABLETS. CALL 911 AFTER TAKING 2ND TABLET active Not Available Not Available No t Available lisinopril 5 mg tablet 09/21 completed Not Available Not Available Not Available metoprolol tartrate 25 mg tablet active Not Available Not Available No t Available aspirin active Not Available Not Avail able Not Available Vitals None Recorded Social History Question Answer Notes LastModified by Organizat ion Details LastModified Time Tobacco Smoking Status Current Some Day Smoker Alma fregoso [facility] 09/21/2023 12:43:21 What Is Your Level Of Alcohol Consumption? Moderate Information not available 09/21/2023 What Is Your Level Of Caffeine Consumption? Moderate Information not available 09/21/2023 What Was The Date Of Your Most Recent Tobacco Screening? 12/26/2023 [email or web address] Information not available 12/26/2023 How Much Tobacco Do You Smoke? No Information not available 09/21/2023 Do You Use Any Illicit Or Recreational Drugs? No Information not available 01/10/2023 Has Tobacco Cessation Counseling Been Provided? No Information not available 01/10/2023 Sex: Unknown Functional Status None recorded. Mental Status None recorded. Family History Relationship Description Onset Age of this Age Resolved Age Notes LastModified by Organization Details LastModified Time Father Family history of cardiac disorder [email or web address] Not available 2023 12:41:39 Father Family history of Hypertension vdrey Not available 12:41:59 Mother Family history of Hypertension vdrey Not available 12:41:59 Sister Family history of Hypertension vdrey Not available 12:41:59 Brother Family history of renal stone vdrey Not available 08/30 12:42:12 Medical History Condition Response Kidney Stones N Depression N Lung Disease N GERD/Acid Reflux N Cancer N Diabetes N Bleeding Disorder Heart Disease Y Immunizations Vaccine Type Date Status Provider Name and Address Organization Details Recorded Time zoster recombinant 10/01/2019 completed Gabriella Bro oks null, [facility] 05/03/2023 11:36:34 zoster recombinant 07/23/2019 completed Gabriella Bro oks null, [facility] 05/03/2023 11:36:34 Influenza, adjuvanted, quadrivalent, PF 05/29/2020 completed Gabriella Wood null, [facility] 05/03/2023 11:36:34 Influenza, adjuvanted, quadrivalent, PF 06/24/2021 completed Gabriella Wood null, [facility] 05/03/2023 11:36:34 Influenza, adjuvanted, quadrivalent, PF 08/12/2022 completed Gabriella Wood null, [facility] 05/03/2023 11:36:34 COVID-19, mRNA, LNP-S, PF, 30 mcg/0.3 mL dose 11/10/2021 completed Gabriella Wood null, [facility] 05/03/2023 11:36:34 COVID-19, mRNA, LNP-S, PF, 30 mcg/0.3 mL dose 04/28/2021 completed Gabriella Wood null, [facility] 05/03/2023 11:36:34 COVID-19, mRNA, LNP-S, PF, 30 mcg/0.3 mL dose 06/16/2021 completed Gabriella Wood null, [facility] 05/03/2023 11:36:34 COVID-19, mRNA, LNP-S, bivalent, PF, 30 mcg/0.3 mL dose 08/12/2022 completed Gabriella Wood null, [facility] 05/03/2023 11:36:34 pneumococcal polysaccharide PPV23 10/17/2008 completed Gabriella Wood null, [facility] 05/03/2023 11:36:34 pneumococcal polysaccharide PPV23 05/29/2020 completed Gabriella Wood null, [facility] 05/03/2023 11:36:34 Tdap 10/17/2008 completed Gabriella Wood null, [facility] 05/03/2023 11:36:34 Novel [id number], all formulations 11/24/2009 completed Gabriella Wood null, [facility] 05/03/2023 11:36:34 Pneumococcal conjugate PCV 13 04/18/2019 completed Gabriella fregoso, [facility] 05/03/2023 11:36:34 Influenza, high-dose, trivalent, PF 05/30/2017 completed Gabriella Wood null, [facility] 05/03/2023 11:36:34 Influenza, split virus, trivalent, preservative 06/03/2010 [facility] 11:36:34 Influenza, split virus, trivalent, preservative 06/29/2012 [facility] 11:36:34 Influenza, split virus, trivalent, preservative 07/14/2005 [facility] 11:36:34 Influenza, split virus, trivalent, preservative 07/17/2007 [facility] 11:36:34 Influenza, split virus, trivalent, preservative 07/19/2013 [facility] 11:36:34 Influenza, split virus, trivalent, preservative 07/27/2006 [facility] 11:36:34 Influenza, split virus, trivalent, PF 05/23/2009 [facility] 11:36:34 Influenza, split virus, trivalent, PF 06/14/2011 [facility]23 11:36:34 Td (adult), 2 Lf tetanus toxoid, preservative free, adsorbed 04/18/2019 [facility] 11:36:34 Influenza, split virus, quadrivalent, PF 05/17/2016 [facility] 11:36:34 Influenza, split virus, quadrivalent, PF 07/07/2018 [facility] 11:36:34 Influenza, split virus, quadrivalent, PF 07/17/2015 completed [facility] 05/03/2023 11:36:34 Past Encounters Encounter ID Performer Location Encounter Start Date Encounter Closed Date Diagnosis/Indication Diagnosis SNOMED-CT Code Diagnosis ICD10 Code [id number] Lina Sheppard [facility] [address] [place] [id number] 06/22/2024 13:42:16 06/25/2024 10:26:38 Retention of urine 631321932 R33.9 Health Concerns Section Related Observation LastModified by Organization Detai ls LastModified Time None Recorded Concern Status LastModified by Organization Details LastModified Time None Recorded Payers Encounter Date Sequence Insurance Name Policy Number Policy Saucedo Covered Member ID Saucedo Member ID Guarantor Name 06/22/2024 1 [employer] [employer] COST [id number] Pepe Villalobos [id number] Pepe Villalobos Notes Date Note Type Note Provider Name and Address Organization Details Recorded Time 06/22/2024 text/html HPI Notes: Leo presents to clinic for routine cath change. Reports no concerns. Nurse visit completed by Lina Ta RN. [facility] 06/22/2024 14:52:23
[2024-06-27 10:15] LABS: Troponin, Point-of-Care* 0.01 ng/ml (0.01-0.04)
[2024-06-27 10:20] LABS: Basophils Absolute Auto 0.05 K/uL (0.00-0.30); Basophils Percent Auto 0.6 % (0.0-3.0); Eosinophils Absolute Auto 0.19 K/uL (0.00-0.50); Eosinophils Percent Auto 2.4 % (0.0-7.0); Hematocrit 42.1 % (37.0-53.0); Hemoglobin* 14.5 gm/dL (13.5-17.5); Immature Granulocytes Abs Auto 0.04 K/uL (0.00-0.30); Immature Granulocytes Pct Auto 0.5 %; Lymphocytes Absolute Auto 1.73 K/uL (0.90-2.90); Lymphocytes Percent Auto 21.7 % (20-44); Mean Corpuscular HGB Conc 34 gm/dL (32-36); Mean Corpuscular Hemoglobin 32 pg (26-34); Mean Corpuscular Volume 93 fL (80-100); Monocytes Percent Auto 8.9 % (0.0-11.0); Neutrophils Absolute Auto 5.26 K/uL (1.7-7.0); Neutrophils Percent Auto 65.9 % (42.0-72.0); Platelet Count* 193 K/uL (140-440); RDW Coefficient of Variation % 11.9 % (11.5-15.5); Red Blood Count 4.51 m/uL (4.30-5.90); White Blood Count* 7.98 K/uL (4.50-11.00)
[2024-06-27 10:23] LABS: Slide Review Reflex No
[2024-06-27 10:34] LABS: Chloride* 102 mmol/L (96-114); Sodium* 137 mmol/L (135-149)
[2024-06-27 10:35] LABS: Potassium* 4.1 mmol/L (3.6-5.1)
[2024-06-27 10:37] LABS: Anion Gap 9 mEq/L (7-15); Carbon Dioxide* 26 mmol/L (20-32); Creatinine* 0.8 mg/dL (0.5-1.5); Est. Creatinine Clearance* 58.08; Estimated Glomerular Filt Rate 94 ml/min
[2024-06-27 10:38] LABS: Blood Urea Nitrogen* 14 mg/dL (7-30); Calcium* 9.5 mg/dL (8.4-10.6); Glucose* 184 mg/dL (60-115)
[2024-06-27 10:49] LABS: NT Pro B Type NatriureticPept* 1000 pg/mL
== END 2024-06-27 11:12 | disposition home or self-care (01) ==
LOC: ED 09:42
PROVIDERS: Emergency Provider Emergency Medicine Emergency Medical Services; PCP Family Medicine
DX: R06.01 Orthopnea (principal)
CPT/HCPCS: 36415; 71046; 80048; 83880; 84484; 85025; 93005; 99284; 99285

== ENCOUNTER 2025-08-22 06:20 | Emergency (ER) | payer MEDICARE, SELFPAY ==
--- OUTSIDE RECORDS SUMMARY | 2025-08-22 06:22 | XMS_ITS | Data Portability ---
Author Organization [facility], [facility] Address [address] [place] [address] Care Team Providers Care Layout Operator Name Role Phone VOTELSHADIA Primary Care Provider [phone] Assessment No assessment recorded. Plan of Treatment Reminders Order DateSubmit DateProviderLast Modified ByOrganization DetailsLast Modified TimeDetailsAppointmentsNone recorded.LabNone recorded.ReferralNone recorded. ProceduresNone recorded.SurgeriesNone recorded.ImagingNone recorded.Medication OrdersNone recorded. Patient TargetsNo targets recorded. Patient Instructions Encounter Date Encounter Id Patient Instructions Last Modified By Organization Details Last Modified Time 04/03/2025 [id number] Procedure Descri ption: The Aquablation procedure is a minimally invasive surgical technique used to treat benign prostatic hyperplasia (BPH). During the procedure, a combination of imaging and robotics is utilized to deliver a high-velocity waterjet to precisely remove excess prostate tissue, thus relieving urinary symptoms associated with BPH. The procedure is performed under general or regional anesthesia. Benefits: Improved urinary symptoms: Aquablation has shown efficacy in improving urinary flow, reducing urinary frequency, urgency, and nocturia, and relieving other symptoms caused by BPH. Preserved sexual function: The Aquablation procedure aims to preserve sexual function, including erectile function and ejaculation. Risks and Complications: While Aquablation is generally considered safe, there are potential risks and complications associated with the procedure, including but not limited to: (1) Bleeding: In rare cases, excessive bleeding may occur during or after the procedure, requiring blood transfusion or further intervention. (2) Infection: There is a risk of infection at the surgical site, urinary tract, or elsewhere in the body, which may necessitate antibiotic treatment. (3) Urinary retention: Difficulty or inability to urinate immediately after the procedure may occur, necessitating the placement of a temporary urinary catheter. (4) Urinary incontinence: There is a small risk of temporary or, in rare cases, permanent urinary incontinence. (5) Sexual dysfunction: While efforts are made to preserve sexual function, there is a possibility of erectile dysfunction, retrograde ejaculation, or other changes in sexual function. (6) Transurethral resection of the prostate (TURP) conversion: In rare instances, if the Aquablation procedure is deemed unsuccessful or unsafe, conversion to TURP or other interventions may be necessary.itakty9Uzk wjcaqqpiw90/06/2025 15:15:40 Reason for Referral None Reported. Results Created Date Observation Date Name Description Value Unit Range Abnormal Flag Note LastModifiedBy Organization Detail LastModifiedTime 04/04/2025 04/04/2025 US, prostate No observation recorded.jkaituriNot Rzobbrjpw42/07/2025 13:43:15 Result Notes None recorded. Problems Name Problem SNOMED Code Status Onset Date Resolution Date Notes Provider Name and Address Organization Details Recorded Time Retention of urine 253880033 Active 04/04/2023 Lina fregoso [facility]04/04/2023 16:25:45 Problem Notes None recorded. Procedures Surgical History Date Name Laterality Status Provider Name and Address Organization Details Recorded Time 08/19/2025 Urethral Catheter Change completedLina Craig - [place] Iemrylf66/22/2025 12:26: Urethral Catheter ChangecompletedLina Jerry [facility] Nhxpfof02/14/2025 14:16:Urethral Catheter ChangecompletedLina Jerry - [place] Mqluwam42/10/2025 15:21:Urethral Catheter ChangecompletedLina Jerry - [place] Lajrcot3204/25/2025 12:21:OMPLEX VISIT completedRerhoda Rodriguez - [place] Clorvjn8103/29/2025 13:07:TRUS- Volume size onlycompletedNegrito Whelan MD [address] [place] [address],[address], [place], [address], [facility] Kdnsslc5404/03/2025 15:14:4907OMPLEX VISITcompletedNegrito Whelan MD [address] [facility],[address], [address], [facility] - [place] Nslkuse5003/28/2025 23:35:40003/28/2025Urethral Catheter Change completedRebecca MirandaMN - [place] Vmimnks8803/28/2025 14:10:4306 Urethral Catheter ChangecompletedMarie BwanakeyeMN [facility] Qmxzdup6002/15/2025 12:57:14001/15/2025Urethral Catheter ChangecompletedMarie BwanakeyeMN [facility] Jwdqhhc0701/15/2025 13:07:1604Urethral Catheter ChangecompletedMarie [facility] CenterkeyeMN [facility] Ssxgzhn8112/13/2024 14:30:2803Urethral Catheter ChangecompletedMarie BwanakeyeMN [facility] Pcxujii3811/12/2024 13:51:51 10/03/2024Urethral Catheter ChangecompletedMarie BwanakeyeMN [facility] 10/03/2024 12:25:50110/04/2023Urethral Catheter ChangecompletedMarie BwanakeyeMN [facility] Hgqhmks89/06/2024 11:55:0806/22/2024Urethral Catheter Change completedMarie [facility] CentersabinoAbbyN [facility] Rjohmqr49/25/2024 14:33:38005/08/2024 Urethral Catheter ChangecompletedMarie BwanakeyeMN [facility] Qqiknnp6905/08/2024 12:43:02003/15/2024Urethral Catheter ChangecompletedMarie BwanakeyeMN [facility] Ouyjffc2303/15/2024 16:00:43001/25/2024Urethral Catheter ChangecompletedMarie BwanakeyeMN [facility] Aqigfgr5001/25/2024 12:12:FOLEY CHANGE completedKali DylanchMN [facility] Btpnvdo2512/26/2023 13:27:37011/24/2023Urethral Catheter ChangecompletedMarie BwanakeyeMN [facility] Apomlwi8811/24/2023 11:44:32 10/21/2023Urethral Catheter ChangecompletedMarie [facility] 10/21/2023 11:24:52009/21/2023Urethral Catheter ChangecompletedRebecrichelle Burgos [facility]09/21/2023 15:24:4608/08/2023Urethral Catheter Change completedKelChristy [place]ille 4438710/09/2022 14:43:23110/09/2022 Urodynamic StudiescompletedDavid [place] 8407410/09/2022 15:24:4707/08/2023Urethral Catheter Changecompleted[facility] [place] 1939909/07/2022 12:32:5206/03/2023Urethral Catheter Changecompleted[facility]ie [place] [address] 11:57:0805/03/2023Urethral Catheter ChangecompletedErica [facility]05/03/2023 11:37:3208 U[address] C[address]ter Changecompleted[address] [facility]04/04/2023 16:28:15003/07/2023Urethral Catheter ChangecompletedSteven [facility]/07/2023 11:20:0106Urethral Catheter ChangecompletedErica [facility]02/07/2023 14:20:13012/20/2022Fill and Pull/Voiding Trial/TOVcompletedMindy [facility]itRain[facility]12/20/2022 13:04:39repair of right inguinal herniacompletedValerie [facility]09/21/2023 12:44:02 Imaging Results None recorded. Procedure Notes None recorded. Medical Equipment None Reported. Allergies No known drug allergies Medications Name Sig Start Date Stop Date Status Note LastModified by Organization Details LastModified Time atorvastatin 40 mg tablet activeNot AvailableNot AvailableNot Availableciprofloxacin 500 mg tablet 4completedNot AvailableNot AvailableNot Availableamoxicillin 875 mg tabletTAKE 1 TABLET BY MOUTH TWICE DAILY UNTIL ALL TAKENactiveNot AvailableNot AvailableNot Availabletamsulosin 0.4 mg capsuleTAKE 1 CAPSULE BY MOUTH EVERY DAY 09/21/2023ompletedNot AvailableNot AvailableNot Availablecephalexin 500 mg capsuleTAKE 1 CAPSULE BY MOUTH FOUR TIMES DAILY09/21/2023ompletedNot Available Not AvailableNot Availablelisinopril 10 mg tabletactiveNot AvailableNot AvailableNot Availablenitroglycerin 0.4 mg sublingual tabletSIT DOWN AND PLACE 1 TABLET UNDER THE TONGUE EVERY 5 MINUTES IF NEEDED. MAX OF 3 TABLETS. CALL 911 A FTER TAKING 2ND TABLETactiveNot AvailableNot AvailableNot Availablelisinopril 5 mg sybiyi0909/21/2023ompletedNot AvailableNot AvailableNot Availablefurosemide 20 mg tabletTAKE 1 TABLET BY MOUTH DAILYactiveNot AvailableNot AvailableNot Availablemetoprolol tartrate 25 mg tabletactiveNot AvailableNot AvailableNot AvailableaspirinactiveNot AvailableNot AvailableNot Available Vitals None Recorded Social History Question Answer Notes LastModified by Organization D etails LastModified Time Tobacco Smoking Status Current Some Day Smoker [facility] Ezijrji5209/21/2023 12:43:21What Is Your Level Of Caffeine Consumption?ModeratevdreyInformation not rwinozzma32/24/2024What Was The Date Of Your Most Recent Tobacco Screening?08/16/2025ekaznessisInformation not available 08/16/2025Have You Ever Been Counseled For Unhealthy Alcohol Use?Yesekaznessis Information not gqwpovzvm63/19/2025How Much Tobacco Do You Smoke?1 PPWekaznessis Information not fxbwaghky30/19/2025Has Tobacco Cessation Counseling Been Provided?YesekaznessisInformation not btiwdruxz55/19/2025On What Date Was Tobacco Cessation Counseling Provided?08/16/2025ekaznessisInformation not nhorazloo59/19/2025How Many Days In The Past Year Have You Consumed 5 Or More Drinks?0ekaznessisInformation not gfjdolbrk22/19/2025 Sex: Unknown Functional Status Question Answer Note LastModified by Organization D etails LastModified Time Do you use any illicit or recreational drugs? No prugelInformation not zdwdxngqa35/15/2023o you or have you ever used any other forms of tobacco or nicotine?NoekaznessisInformation not wiebzfgsu22/19/2025What is your level of alcohol consumption?ModeratevdreyInformation not available 09/21/2023 Mental Status None recorded. Family History Relationship Description Onset Age of this Age Resolved Age Notes LastModified by Organization Details LastModified Time Father Family history of cardiac disord er vdreyNot pnhnmfzuj97/24/2024 12:41:39FatherFamily history of Hypertensionvdrey Not yzehrwmvp22/24/2024 12:41:59MotherFamily history of HypertensionvdreyNot joivmtowu86/24/2024 12:41:59SisterFamily history of HypertensionvdreyNot vlwgrnkyt77/24/2024 12:41:59BrotherFamily history of renal stonevdreyNot howmmlzdh04/24/2024 12:42:12 Medical History Condition Response Diabetes N Bleeding Disorder Kidney StonesNGERD/Acid RefluxNHeart DiseaseYCancerNLung DiseaseNDepressionN Immunizations Vaccine Type Date Status Note Provider Nam e and Address Organization Details Recorded Time zoster recombinant 10/01/2019 [facility]20[facility] 11:36:34zoster hycemnfkdkp35/25/2019completed [facility]ella [facility]/03/2023 11:36:34Influenza, adjuvanted, quadrivalent, PF 05/29/2020completedErthelma Wood [facility]05/03/2023 11:36:34Influenza, adjuvanted, quadrivalent, PF 06/24/2021ompleteModesta Wood [facility]05/03/2023 11:36:34Influenza, adjuvanted, quadrivalent, PF 2completeModesta Wood [facility]05/03/2023 11:36:34COVID-19, mRNA, LNP-S, PF, 30 mcg/0.3 mL dose11/10/2021ompWandy Wood [facility]05/03/2023 11:36:34COVID-19, mRNA, LNP-S, PF, 30 mcg/0.3 mL dose04/28/2021ompWandy Wood [facility]05/03/2023 11:36:34COVID-19, mRNA, LNP-S, PF, 30 mcg/0.3 mL dose06/16/2021[facility], [facility] Vhgpqzh6405/03/2023 11:36:34COVID-19, mRNA, LNP-S, bivalent, PF, 30 mcg/0.3 mL dose08/12/2022[facility] null, [facility] Dlccspa0205/03/2023 11:36:34pneumococcal polysaccharide PPV23 10/17/2008[facility] null, [facility]05/03/2023 11:36:34pneumococcal polysaccharide PPV23 05/29/2020com[facility], [facility]05/03/2023 11:36:32Kpsk0910/17/2008com[facility], [facility]05/03/2023 11:36:34Novel Hovbbdbtd-T2X7-64, all xltgzubmopvc99/29/2010com[facility], [facility]05/03/2023 11:36:34Pneumococcal conjugate PCV 13004/18/2019 [facility], [facility]05/03/2023 11:36:34Influenza, high-dose, trivalent, PF 05/30/2017com[facility], [facility]05/03/2023 11:36:34Influenza, split virus, trivalent, essskzkdnepx81/06/2010comUN[facility] null, [facility] Jhkanuu1305/03/2023 11:36:34Influenza, split virus, trivalent, cnbbfkczzemu12/01/2012com[facility], [facility] Odpfndr7305/03/2023 11:36:34Influenza, split virus, trivalent, viubxdsqdbsx85/16/2005comUN[facility] null, [facility] Tfaobzt0405/03/2023 11:36:34Influenza, split virus, trivalent, kxkysiawtcqb73/19/2007comUN[facility] null, [facility]05/03/2023 11:36:34Influenza, split virus, trivalent, jtuchdrpukrb83/21/2013comdo[facility] springfieldAydee fregoso, [facility] Wbakphi4305/03/2023 11:36:34Influenza, split virus, trivalent, udbzhmkcdxsx14/29/2006comdoctors hospital of springfieldAydee [facility] null, [facility] Rgswcdt3305/03/2023 11:36:34Influenza, split virus, trivalent, PF 05/23/2009comdo[facility] hospital of springfieldAydee Wood null, [facility]05/03/2023 11:36:34Influenza, split virus, trivalent, PF 06/14/2011comdo[facility] hospital of springfieldAydee fregoso, [facility]05/03/2023 11:36:34Td (adult), 2 Lf tetanus toxoid, preservative free, ghqgjwsu87/21/2019comJeff[facility] Hospitalthelma fregoso, [facility]05/03/2023 11:36:34Influenza, split virus, quadrivalent, PF05/17/2016comdo[facility] hospital of springfieldAydee fregoso, [facility]05/03/2023 11:36:34Influenza, split virus, quadrivalent, PF07/07/2018comdo[facility] hospital of springfieldAydee fregoso, [facility]05/03/2023 11:36:34Influenza, split virus, quadrivalent, PF07/17/2015comdoctors hospital of springfieldAydee fregoso, [facility]05/03/2023 11:36:34 Past Encounters Encounter ID Performer Location Encounter Start Date Encounter Closed Date Diagnosis/Indication Diagnosis SNOMED-CT Code Diagnosis ICD10 Code Diagnosis IMO Codes Diagnosis Note [id number] JAMES LINTON_[place] [address] [place] [address] 12/20/2022 10:52:19 12/24/2022 14:56:26 Lower urinary tract symptoms due to benign prostatic hypertrophy 20323178796356 N40.1 TOV today - passedContinue flomax dailyBriefly reviewed BPH treatment options including available procedures. He opts to continue Flomax at this time.[id number] VINITA LINTONCURosey_[place] [address] [place] [address] 01/10/2023 11:02:14001/15/2023 10:40:00Lower urinary tract symptoms due to benign prostatic nodbxrpjioe25881141273999K05.1 Opts to continue catheter for now - if this is the case can d/c flomaxFoley exchanged today. To be exchanged monthly moving forward.Will hold off on finasteride after discussing this optionWhen ready, will get urodynamic studies and f/u with MD to discuss procedure options (interested inTURP)[id number] MCKEONCUA_[place] [address] [place] [address] 02/07/2023 10:43:04002/12/2023 10:52:27Retention of nobjz286027973M75.9 Pt will RTC in one month for another catheter change. [id number] MARY LINTON-[facility] [address] [place] [address] 03/07/2023 11:01:46003/11/2023 13:30:24Retention of moyyz055685014H48.9 Pt will RTC in one month for another catheter change. [id number] LINTONCUA_[place] [address] [place] [address] 04/04/2023 14:49:50004/07/2023 18:15:39Retention of odyjd350178557K75.9 [id number] LINTON-[facility] [address] [place] [address] 05/03/2023 11:00:5809 20:02:35Retention of fxpmz102453557G95.9 [id number] LINTONCUA_[place] [address] [place] [address] 06/03/2023 11:06:431 08:48:13Retention of shjal110428879W23.9 [id number] GASPERLIN, PA-[facility] [address] [place] [address] 07/08/2023 12:07:23109/14/2022 08:36:22Retention of argdc431802820F64.9 [id number] GASPERHAY[place], [place]-[facility] [address] [place] [address] 08/08/2023 12:59:38110/17/2022 16:52:52Retention of wttsw612484117T51.9 [id number] Kumar_[place] [address] [place] [address] 09/21/2023 12:08:37009/21/2023 15:15:00Slowing of urinary uxzroj25760648P55.12 - Tried and failed maximal medical therapy -Currently catheter dependent - We discussed various bladder outlet procedures including MISTs (UroLift, Rezum) and traditional invasive procedures (Aquablation, Greenlight PVP, Bipolar TURP). We reviewed risks and benefits of each including anticipated long-term outcomes. To further evaluate each of these options as a potential treatment option I will set him up for a cystoscopy and TRUS volume only to determine volume and status of medial lobe; as well as a pressure flow study to confirm obstruction in accordance with AUAguidelines. -Patient will read through available literature and let me knowIncreased frequency of mzhnfpjfw375007017Z02.0 - As hyhhpPwsxyunx798242115Y72.1 -As aboveUrgent desire to mxjoaoj77006140V56.15 -As aboveRetention of ogozx426036070C40.9 -As above -Catheter changed ivxfc320711WSHZRLMNBI GASPERHAY[place], PA-[facility] [address] [place] [address] 10/21/2023 10:57:59010/24/2023 12:16:30Retention of wmbxz020751938K15.9 [id number] GASPERHAY[place], [place]-[facility] [address] [place] [address] 11/24/2023 11:05: 09:39:15Retention of aghpw070814649C64.9 [id number] MCLAUGHLIN [facility] [address] [place] [address] 12/26/2023 11:03:24012/26/2023 15:02:05Retention of uaauk573953601N04.9 Call triage with any ross concerns, scheduled in four weeks for next catheter change.[id number] MCLAUGHLIN [facility] [address] [place] [address] 01/25/2024 11:44:48001/25/2024 12:50:40Retention of abpmo115985082G77.9 [id number] MCLAUGHLIN [facility] [address] [place] [address] 03/15/2024 14:51:33003/19/2024 14:33:15Retention of ddnhq793280172X32.9 [id number] GASSKYLER [facility] [address] [place] [address] 05/08/2024 12:12:12005/09/2024 09:38:44Retention of sknoj250514863Y39.9 [id number] MCLAUGHLIN [facility] [address] [place] [address] 06/22/2024 13:42:161 10:26:38Retention of eujrl386805946T68.9 [id number] MCLAUGHLIN [facility] [address] [place] [address] 08/03/2024 11:20:45110/07/2023 15:47:14Retention of yntyd810821198K42.9 [id number] MCLAUGHLIN [facility] [address] [place] [address] 10/03/2024 11:46:41010/05/2024 15:51:40Retention of ucwom669421478Q73.9 [id number] MCKEON-CATHY[facility] [address] [place] [address] 11/12/2024 12:06:54011/19/2024 09:16:48Retention of zohds445859090F15.9 [id number] KumarShuna [address] [place] [address] 12/13/2024 13:17:13012/19/2024 14:49:45Retention of kquql743159870S82.9 [id number] Kumara [address] [place] [address] 01/15/2025 11:38:55001/23/2025 09:08:42Retention of hdqfd600309636Y82.9 [id number] KumarShuna [address] [place] [address] 02/15/2025 10:56:0802/28/2025 11:29:03Retention of ugrss940483121M97.9 [id number] Kumara [address] [place] [address] 03/28/2025 13:34:13004/05/2025 11:48:59Slowing of urinary ucybjs58416323D36.12 - Tried and failed maximal medical therapy - Currently catheter dependent - We discussed various bladder outlet procedures including MISTs (UroLift, Rezum) and traditional invasive procedures (Aquablation, Greenlight PVP, Bipolar TURP). We reviewed risks and benefits of each including anticipated long-term outcomes. To further evaluate each of these options as a potential treatment option I will set him up for a TRUS volume only to determine volume and status of mediallobe; as well as a pressure flow study to confirm obstruction in accordance with AUA guidelinesIncreased frequency of bnerbdrbc062196996M78.0 - As xmeedYtiximxi680735026P76.1 -As aboveUrgent desire to chboqqf21727562I28.15 -As aboveRetention of ugqud211031562N31.9 -As above -Catheter changed [id number] Kumar [address] [place] [address] 04/03/2025 09:59: 18:21:49Slowing of urinary kubtrs62844966X42.12 - Tried and failed maximal medical therapy - Currently catheter dependent - We discussed various bladder outlet procedures including MISTs (UroLift, Rezum) and traditional invasive procedures (Aquablation, Greenlight PVP, Bipolar TURP). We reviewed risks and benefits of each including anticipated long-term outcomes. Recommend HoLEP vs. Aquablation. Patient will consider options and let me know. Handouts providedIncreased frequency of nqtesfkoq081386059T88.0 - As jnhwqMsbvetdu546151586N61.1 -As aboveUrgent desire to pgnxyjj56632439X11.15 -As aboveRetention of tqhzl257503640X88.9 -As qadzh2393069WfyhngJordan Kumar [employer] [address] 04/25/2025 11:43:59005/09/2025 11:34:54Retention of hrntm890402839D63.9 [id number] Kumar [address] [place], [place] [address]e. [place] [address] 06/07/2025 13:54:5706/10/2025 15:36:29Retention of lxqrs955992620Z87.9 [id number] Kumar [address] [place], [place] [address] [address] 07/12/2025 13:32:37109/25/2024 14:43:24Retention of juxzg621462213A33.9 [id number] Kumar [address] [place] [address] 08/19/2025 11:26:28110/20/2024 12:28:42Retention of eoigg417525782H73.9 Health Concerns Section Related Observation LastModified by Organization Detai ls LastModified Time None Recorded Concern Status LastModified by Organization Details LastModified Time None Recorded Advance Directives Directive None Recorded Payers Insurance Date Sequence Insurance Name Policy Number Policy Saucedo Covered Member ID Saucedo Member ID Guarantor Name 08/19/[address] [facility] HARINIU M LAFAYETTE - MEDICARE COST [id number] Pepe Villalobos [id number] Pepe Villalobos Notes Date Note Type Note Provider Name and Address Carlos A kennedy Details Recorded Time 04/03/2025 text/html 72 YOM here for acute urinary retention, catheter placed 12/12 in [place]. Was started on flomax at that time. Seen by me in clinic 12/20 at which time he passed voiding trial (300cc in, 250cc out) and opted to continue on Flomax. Unfortunately he was seen in the ER the next day again in urinary retention. Has had catheter sincethen. 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 He is on ASA 81 - h/o coronary stent many years ago. Prior to going into retention in November was bothered for months with nocturia x3- 4, slow stream. H/o hydrocele as teenager. 09/21/2023 ([place]opatra):72-year-old male who is referred to me regarding history of urinary retention, weakened urinary stream, urinary frequency, nocturia. He has been catheter dependent for several months but is interested in pursuing a bladder outlet procedure. He completed a urodynamics evaluation for my review which indicates good detrusor contraction but significant outlet obstruction. 03/28/2025:Here for follow up on urinary retention, weakened urinary stream, urinary frequency, nocturia. Had catheter changed today. Since last office visit he was diagnosed with acute heart failure. He is having a diagnostic cardiac procedure with Dr. Yogesh Nunez at [place] in the upcoming months. He was interested in bladder outlet obstruction procedure but wanted to wait as he is currently dealing with cardiac concerns. He is tolerating his catheter well. Seen today with his who provides some of the history. 04/03/2025:Here for follow up on chronic urinary retention, weakened urinary stream, urinary frequency, nocturia. Had catheter changed today. Considering outlet procedures so here for TRUS volume only.Negrito Whelan MD [address] [facility],[address], [place], [address], [facility] Knwxotq0304/03/2025 15:16:03004/25/2025text/html Leo is here for routine cath changeNurse visit completed by Lina Ta RN.Lina fregoso [facility] Hrsnqax1504/25/2025 15:48:1410text/html Leo is here for routine cath changeNurse visit completed by Steven Jansen [facility] Glfpimg36/10/2025 15:22:0907/12/2025text/html Leo is here for routine cath changePt requested a cath plug.Nurse visit completed by Lina Ta RN.Lina fregoso [facility] Aryabxy17/14/2025 14:16:3112text/html Leo is here for routine cath changePt requested a cath plug.Nurse visit completed by Stevne Jansen [facility] Yzohcql29/22/2025 12:28:40
--- OUTSIDE RECORDS SUMMARY | 2025-08-22 06:22 | XMS_ITS | Continuity of Care Document ---
Author Organization [facility], [facility] Address [address] 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 Plan of Treatment Reminders Order DateSubmit DateProviderLast Modified ByOrganization DetailsLast Modified TimeDetailsAppointmentsNone recorded.LabNone recorded.ReferralNone recorded. ProceduresNone recorded.SurgeriesNone recorded.ImagingNone recorded.Medication OrdersNone recorded. Patient TargetsNo targets recorded. Patient InstructionsNo instructions recorded. Reason for Referral None Reported. Problems Name Problem SNOMED Code Status Onset Date Resolution Date Notes Provider Name and Address Organization Details Recorded Time Retention of urine [id number] Active 04/04/[address] [facility] Uaqilou3704/04/2023 16:25:45 Problem Notes None recorded. Procedures Surgical History Date Name Laterality Status Provider Name and Address Organization Details Recorded Time 08/19/2025 Urethral Catheter Change completedLina Craig [facility] Jkobhik21/22/2025 12:26: Urethral Catheter ChangecompletedMarie Jerry [facility] Psrxurt49/14/2025 14:16:Urethral Catheter ChangecompletedLina Jerry [facility] Ktciecs51/10/2025 15:21:Urethral Catheter ChangecompletedLina Jerry [facility] Erwvceu3704/25/2025 12:21:OMPLEX VISIT completedRebecrichelle Rodriguez - [place] Wrekkrv3103/29/2025 13:07:TRUS- Volume size onlycompletedNegrito Whelan MD [address], [place], [address], [facility] Foywiiq2104/03/2025 15:14:4907OMPLEX VISITcompletBecky Whelan MD [address], [place], [address], [facility] Ktdpzre2903/28/2025 23:35:4007Urethral Catheter Change completedRebecca MirandaMN - [place] Xqkbcch0003/28/2025 14:10:4306 Urethral Catheter ChangecompletedMarie BwanakeyeMN - [place] Cwbkqpf5002/15/2025 12:57:1405Urethral Catheter ChangecompletedMarie BwanakeyeMN - [place] Vwmaghe2001/15/2025 13:07:1604Urethral Catheter ChangecompletedMarie anakeyeMN - [place] Mipvkky1512/13/2024 14:30:2803Urethral Catheter ChangecompletedMarie BwanakeyeMN - [place] Gkmilag2611/12/2024 13:51:51 10/03/2024Urethral Catheter ChangecompletedMarie BwanakeyeMN [facility] 10/03/2024 12:25:50110/04/2023Urethral Catheter ChangecompletedMarie BwanakeyeMN - [place] Dfntbkj23/06/2024 11:55:0810Urethral Catheter Change completedMarie BwanakeyeMN - [place] Nzqzfqr35/25/2024 14:33:3809 Urethral Catheter ChangecompletedMarie BwanakeyeMN [facility] Sthkiko4505/08/2024 12:43:02003/15/2024Urethral Catheter ChangecompletedMarie BwanakeyeMN - [place] Fphfpur2303/15/2024 16:00:43001/25/2024Urethral Catheter ChangecompletedMarie BwanakeyeMN - [place] Hfdvrfq9501/25/2024 12:12:FOLEY CHANGE completedKali FinchMN - [place] Pcahruh3312/26/2023 13:27:3703Urethral Catheter ChangecompletedMarie [facility]11/24/2023 11:44:32 10/21/2023Urethral Catheter ChangecompletedMarie [facility]ino[facility] 10/21/2023 11:24:52009/21/2023Urethral Catheter ChangecompletedRebecca Aubrey [facility]09/21/2023 15:24:4608/08/2023Urethral Catheter Change completedKelly [place] [address]10/09/2022 14:43:23110/09/2022 Urodynamic StudiescompletedJustin [place] 3750010/09/2022 15:24:4707/08/2023Urethral Catheter ChangecompletedSaint [facility] Centerie [place] 8265009/07/2022 12:32:5210Urethral Catheter ChangecompletedMarie [place] [address] 11:57:0809Urethral Catheter ChangecompletedErica [facility]05/03/2023 11:37:3208 Urethral Catheter ChangecompletedMarie [facility]04/04/2023 16:28:1507Urethral Catheter ChangecompletedSteven [facility]03/07/2023 11:20:0106Urethral Catheter ChangecompletedErica [facility]02/07/2023 14:20:1304Fill and Pull/Voiding Trial/TOVcompletedMindy GneitPark [facility]12/20/2022 13:04:39repair of right inguinal herniacompletedValerie [facility]09/21/2023 12:44:02 Imaging Results None recorded. Procedure Notes None recorded. Medical Equipment None Reported. Allergies No known drug allergies Medications Name Sig Start Date Stop Date Status Note LastModified by Organization Details LastModified Time atorvastatin 40 mg tablet activeNot AvailableNot AvailableNot Availableciprofloxacin 500 mg tablet 09/21/2023ompletedNot AvailableNot AvailableNot Availableamoxicillin 875 mg tabletTAKE 1 TABLET BY MOUTH TWICE DAILY UNTIL ALL TAKENactiveNot AvailableNot AvailableNot Availabletamsulosin 0.4 mg capsuleTAKE 1 CAPSULE BY MOUTH EVERY DAY 4completedNot AvailableNot AvailableNot Availablecephalexin 500 mg capsuleTAKE 1 CAPSULE BY MOUTH FOUR TIMES DAILY09/21/2023ompletedNot Available Not AvailableNot Availablelisinopril 10 mg tabletactiveNot AvailableNot AvailableNot Availablenitroglycerin 0.4 mg sublingual tabletSIT DOWN AND PLACE 1 TABLET UNDER THE TONGUE EVERY 5 MINUTES IF NEEDED. MAX OF 3 TABLETS. CALL 911 A FTER TAKING 2ND TABLETactiveNot AvailableNot AvailableNot Availablelisinopril 5 mg liqpqa8409/21/2023ompletedNot AvailableNot AvailableNot Availablefurosemide 20 mg tabletTAKE 1 TABLET BY MOUTH DAILYactiveNot AvailableNot AvailableNot Availablemetoprolol tartrate 25 mg tabletactiveNot AvailableNot AvailableNot AvailableaspirinactiveNot AvailableNot AvailableNot Available Vitals None Recorded Social History Question Answer Notes LastModified by Organization D etails LastModified Time Tobacco Smoking Status Current Some Day Smoker [facility] Txhnjre3609/21/2023 12:43:21What Is Your Level Of Caffeine Consumption?ModeratevdreyInformation not hyzyaukza73/24/2024What Was The Date Of Your Most Recent Tobacco Screening?08/16/2025ekaznessisInformation not available 08/16/2025Have You Ever Been Counseled For Unhealthy Alcohol Use?Yesekaznessis Information not ltimvzpso63/19/2025How Much Tobacco Do You Smoke?1 PPWekaznessis Information not zbzinvrgv67/19/2025Has Tobacco Cessation Counseling Been Provided?YesekaznessisInformation not xtlalmtvp49/19/2025On What Date Was Tobacco Cessation Counseling Provided?08/16/2025ekaznessisInformation not vdweqfwmt50/19/2025How Many Days In The Past Year Have You Consumed 5 Or More Drinks?0ekaznessisInformation not vjijptxph03/19/2025 Sex: Unknown Functional Status Question Answer Note LastModified by Organization D etails LastModified Time Do you use any illicit or recreational drugs? No prugelInformation not ymsxtubvj76/15/2023Do you or have you ever used any other forms of tobacco or nicotine?NoekaznessisInformation not lwehwudsi53/19/2025What is your level of alcohol consumption?ModeratevdreyInformation not available 09/21/2023 Mental Status None recorded. Family History Relationship Description Onset Age of this Age Resolved Age Notes LastModified by Organization Details LastModified Time Father Family history of cardiac disord er vdreyNot rxsznicvm98/24/2024 12:41:39FatherFamily history of Hypertensionvdrey Not alvmjaewb61/24/2024 12:41:59MotherFamily history of HypertensionvdreyNot rczwumpqr27/24/2024 12:41:59SisterFamily history of HypertensionvdreyNot muylccdit96/24/2024 12:41:59BrotherFamily history of renal stonevdreyNot /24/2024 12:42:12 Medical History Condition Response Diabetes N Bleeding Disorder Kidney StonesNGERD/Acid RefluxNHeart DiseaseYCancerNLung DiseaseNDepressionN Immunizations Vaccine Type Date Status Note Provider Nam e and Address Organization Details Recorded Time zoster recombinant 10/01/2019 completed Gabriella fregoso, [facility]05/03/2023 11:36:34zoster dsueieaajyl27/25/2019completed [facility]/2023 11:36:34Influenza, adjuvanted, quadrivalent, PF 05/29/2020completedErthelma Wood [facility]05/03/2023 11:36:34Influenza, adjuvanted, quadrivalent, PF 1completedErthelma Wood [facility]05/03/2023 11:36:34Influenza, adjuvanted, quadrivalent, PF 2completeModesta [facility], [facility]05/03/2023 11:36:34COVID-19, mRNA, LNP-S, PF, 30 mcg/0.3 mL dose11/10/2021ompleteModesta Wood [facility]05/03/2023 11:36:34COVID-19, mRNA, LNP-S, PF, 30 mcg/0.3 mL dose04/28/2021[facility] null, [facility] Nnmrsvq4805/03/2023 11:36:34COVID-19, mRNA, LNP-S, PF, 30 mcg/0.3 mL dose06/16/2021[facility] null, [facility] Bkugkjn5005/03/2023 11:36:34COVID-19, mRNA, LNP-S, bivalent, PF, 30 mcg/0.3 mL dose2completeCache [facility] null, [facility] Rzznzpa0005/03/2023 11:36:34pneumococcal polysaccharide PPV23 10/17/2008[facility], [facility] Ottfdpm1305/03/2023 11:36:34pneumococcal polysaccharide PPV23 05/29/2020[facility], [facility] Xbdzpzc2105/03/2023 11:36:52Chvu0810/17/2008com[facility], [facility] Hrpetqg8705/03/2023 11:36:34Novel Gdaizjegh-X0S7-25, all czzetslbnjti21/29/2010com[facility], [facility]05/03/2023 11:36:34Pneumococcal conjugate PCV 13004/18/2019 [facility] Zhjdcql9805/03/2023 11:36:34Influenza, high-dose, trivalent, PF 05/30/2017com[facility], [facility] Vqifocj4705/03/2023 11:36:34Influenza, split virus, trivalent, djvxvqlcjcho53/06/2010com[facility] null, [facility] Soeijgi1005/03/2023 11:36:34Influenza, split virus, trivalent, fsabzxcecgwa83/01/2012com[facility] null, [facility] Zjmmsiv2005/03/2023 11:36:34Influenza, split virus, trivalent, ldwarmdfhtqu65/16/2005com[facility] null, [facility] Awcigmm6705/03/2023 11:36:34Influenza, split virus, trivalent, cxejmhfizvij36/19/[address] null, [facility] Wfrobvd0105/03/2023 11:36:34Influenza, split virus, trivalent, vjpyrwjxdknb61/21/2013[address] null, [facility] Disdbvi7805/03/2023 11:36:34Influenza, split virus, trivalent, eihokeeaotfw01/29/[address] null, [facility] Jmotsbo8005/03/2023 11:36:34Influenza, split virus, trivalent, PF 05/23/2009[facility], [facility] Xnvqodw0405/03/2023 11:36:34Influenza, split virus, trivalent, PF 06/14/2011[facility] null, [facility]05/03/2023 11:36:34Td (adult), 2 Lf tetanus toxoid, preservative free, teiyadel01/21/2019com[facility] [place] null, [facility]05/03/2023 11:36:34Influenza, split virus, quadrivalent, PF05/17/2016[facility] [place] null, [facility] Zdwnvop1505/03/2023 11:36:34Influenza, split virus, quadrivalent, PF07/07/2018[address] [place] null, [facility]05/03/2023 11:36:34Influenza, split virus, quadrivalent, PF07/17/2015[address] null, [facility]05/03/2023 11:36:34 Past Encounters Encounter ID Performer Location Encounter Start Date Encounter Closed Date Diagnosis/Indication Diagnosis SNOMED-CT Code Diagnosis ICD10 Code Diagnosis IMO Codes Diagnosis Note [id number] Negrito Whelan MD [facility] [address] [place] [address] 08/19/2025 11:26:28 08/19/2025 12:28:42 Retention of urine 353689144 R33.9 Health Concerns Section Related Observation LastModified by Organization Detai ls LastModified Time None Recorded Concern Status LastModified by Organization Details LastModified Time None Recorded Payers Encounter Date Sequence Insurance Name Policy Number Policy Saucedo Covered Member ID Saucedo Member ID Guarantor Name 08/19/2025 1 [place]IC[place] COST [id number] Pepe Villalobos [id number] Pepe Villalobos Notes Date Note Type Note Provider Name and Address Orga nization Details Recorded Time 08/19/2025 text/html Leo is here for routine cath changePt requested a cath plug.Nurse visit completed by Lina Ta RN.ANA Lane - [place] Xwtpsmo34/22/2025 12:28:40
--- OUTSIDE RECORDS SUMMARY | 2025-08-22 06:22 | XMS_ITS | Clinical Summary ---
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 Phone Alen Do MD Primary Care Provider + Allergies No known active allergies Medications MedicationSigDispense QuantityRefillsLast FilledStart DateEnd DateStatus aspirin enteric coated 81 mg tablet Indications:Acute myocardial infarction of other inferior wall, initial episode of careTake 1 tablet by mouth once daily with a meal.ctive yziucanqtomxc-kiegapln-pvslri (CENTRUM SILVER) 0.4-300-250 mg-mcg-mcg tab Take 1 tablet by mouth once daily.Active medication order composer Wellness immune formula, 1 tablet every other day Active nitroglycerin (NITROSTAT) 0.4 mg sublingual tablet Indications:Coronary artery disease involving [place] coronary artery of [place] heart without angina pectorisPlace 1 Tablet (0.4 mg) under the tongue every 5 minutes if needed (Place 1 tablet under tongue every 5 min as needed). 25 Tablet ctive spironolactone 25 mg tablet Indications:Acute systolic CHF (congestive heart failure) (HC)Take 0.5 Tablets (12.5 mg) by mouth once daily. Due for cardiology follow up please call [phone] to schedule and for further refills 45 Tablet 5Active metoprolol succinate (TOPROL XL) 50 mg sustained-release tablet Indications:Coronary artery disease involving [place] coronary artery of [place] heart without angina pectorisTake 1 Tablet (50 mg) by mouth once daily. Due for cardiology follow up please call [phone] toschedule and for further refills 90 Tablet 5Active furosemide (LASIX) 20 mg tablet Indications:Acute systolic CHF (congestive heart failure) (HC)Take 1 Tablet (20 mg) by mouth once daily in the morning. 90 Tablet 5Active atorvastatin (LIPITOR) 80 mg tablet Indications:Coronary artery disease involving [place] coronary artery of [place] heart without angina pectoris,Hyperlipidemia, unspecified hyperlipidemia type Take 1 Tablet (80 mg) by mouth at bedtime. TAKE 1 TABLET(40 MG) BY MOUTH EVERY DAY 90 Tablet 5Active sacubitril-valsartan (ENTRESTO 24 MG-26 MG TABLET) 24-26 mg tablet Indications:Acute systolic CHF (congestive heart failure) (HC)Take 1 Tablet by mouth two times daily. 180 Tablet 9:42 AM CDT5Active Active Problems ProblemNoted DateDiagnosed DateBPH with urinary zgejqbjwjzh73/21/2024Anxiety 3727Edmorgmvfzg92/21/2012CAD (coronary artery disease)11/24/2009Other and unspecified zfuikpzbbkmnkz61/15/2007 Overview (10/13/2006): - current lipid status unknown HTN (hypertension) Resolved Problems ProblemNoted DateDiagnosed DateResolved DateAcute myocardial infarction of other inferior wall, initial episode of care Overview (10/13/2006): - Inferior STEMI - to microbiology lab technician 10/13/06: s/p PCI with BMS to RCA, angioplasty of rPAV, rPL2 - rPL1 distal occlusion could not be crossed - Other angio findings: mid lad 50-60%, prox D1 85%, ostial D2 40% Other specified forms of chronic ischemic heart cbfqloi70 Overview (10/13/2006): - 10/13/06: EF 40% with severe hypokinesis by LV gram Encounters DateTypeDepartmentCare MngzGotlskkwuda20/22/2025Orders Only [facility] Scanner 1 scan: (1-Ord) [place] [facility], URETHRAL CATHETER CHANGE, /Orders Only [facility] Scanner 1 scan: (1-Ord) CATHETER CHANGE, URETHRAL CATHETER CHANGE, Orders Only [facility] Scanner 1 scan: (1-Ord) [place] [facility], URETHRAL CATHETER CHANGE, 06/07/2025from Last 3 Months Immunizations ImmunizationAdministration DatesNext DueAMB Influenza, IIV3 (Age >=3 years)(Flu Clinic Only)07/19/2013,06/29/2012,06/14/2011MB Influenza, IIV4 PF (=>6 mos Flulaval,Fluzone Fluarix)(Flu Clinic Only)07/07/2018COVID-19 vaccine (Phorest 30mcg/0.3mL) 12YO+ BIVALENT PF, MDV12COVID-19 vaccine (Phorest 30mcg/0.3mL) PF, MDV11/10/2021,06/16/2021,04/28/2021Influenza A (H1N1), Laerlanexfu59/29/2010Influenza A (H1N1), Inactivated (Age >=3 Years)11/24/2009 Influenza, High-dose Chpplgmirpu67/02/2017Influenza, IIV3 (Age 6-35 mos) 06/14/2011,05/23/2009Influenza, IIV3 (Age >=3 years)06/03/2010,06/12/2008, 07/17/2007,07/27/2006,07/14/2005Influenza, PHU862,07/17/2015Influenza, Inactivated AIIV4 (Age 65+ Years) Preserv Free08/12/2022,06/24/2021,05/29/2020 Pneumococcal Poly,23-Valent (Pneumovax)05/29/2020,10/17/2008Pneumococcal conj 13-Valent (Prevnar 13)04/18/2019Td (Age >=7 Years)04/18/2019Tdap10/17/2008Zoster (Shingrix-RZV, recombinant)10/01/2019,07/23/2019 Family History Medical HistoryRelationNameCommentsPsychiatric illnessBrotherToddBipolarHeart DiseaseFatherdied age 66 of [place], in his sleepHeart DiseaseMotherDonnaOther MotherDonnadied age 82, ruptured diverticulitisPsychiatric illnessMotherDonna DEpressionRelationNameStatusCommentsBrotherToddFatherMotherDonna Social History Tobacco UseTypesPacks/DayYears UsedDateSmoking Tobacco: Some DaysCigarsSmokeless Tobacco: Never Tobacco Cessation:Ready to Q uit: No; Counseling Given: Yes Comments:Occ, 1 per week Alcohol UseStandard Drinks/PzddNygypaouTvl74.3 (1 standard drink = 0.6 oz pure alcohol)14 drinks per weekPHQ-2AnswerDate RecordedPHQ-2 TOTAL GLFIS921 Social ConnectionsAnswerDate RecordedDo you often feel lonely or isolated from those around you?Financial Resource StrainAnswerDate Recorded Difficulty of Paying Living Qujlnopl567/21/2024ifficulty of Paying Living ExpensesNot on file07/19/2024Food InsecurityAnswerDate RecordedDo you worry your food will run out before you are able to buy more?Transportation NeedsAnswerDate RecordedDoes lack of transportation keep you from medical appointments?oes lack of transportation keep you from work, meetings or getting things that you need?Housing StabilityAnswerDate Recorded What is your housing situation today?UtilitiesAnswerDate RecordedDo you have trouble paying for utilities (for example, heat, electricity, water, phone)?Sex and Gender InformationValueDate RecordedSex Assigned at BirthNot on fileLegal WedEiva6209/11/2012 5:26 AM CSTGender IdentityNot on file Sexual OrientationNot on fileOccupationIndustryJob Start DateJob End Date CollectiblesNot on fileNot on fileNot on fileretired preaching in [facility] HospitalNot on fileNot on fileNot on file Last Filed Vital Signs Vital SignReadingTime TakenCommentsBlood Xjuzxrwc475/6607 1:39 PM CDT Hlukf3562 1:39 PM JXNEorjwcudnhw36.6 ??C (97.8 ??F)03/21/2025 1:39 PM CDTRespiratory Znxj008303/31/2023 10:56 AM CDTOxygen Hhvybwberu11%03/21/2025 1:39 PM CDTInhaled Oxygen Concentration--Ilrppr37.7 kg (149 lb 4.8 oz)03/21/2025 1:39 PM ENLYxisyr414.2 cm (5' 3.47)03/21/2025 1:39 PM CDTBody Mass Index26.06 03/21/2025 1:39 PM CDT Plan of Treatment Health MaintenanceDue DateLast DoneCommentsRSV vaccine for adults or (1 - Risk 50-74 years 1-dose series)10/26/2001Fecal testing non-DNA (FIT,FOBT,iFOBT) for age 45-, 04/14/2016, 03/18/2015COVID- 19 vaccine series ( season), 11/10/2021, 06/16/2021, Additional history existsInfluenza Vaccine (#1), 06/24/2021, 05/29/2020, Additional history existsBMI (ht and wt on same day) for age 18+, 07/19/2024, 02/07/2024, Additional history exists Depression screening for age 12+, 02/07/2024, 08/13/2022, Additional history existsMedicare Wellness for age 65+, 02/07/2024, 08/12/2022, Additional history existsTetanus esoquvq9904/18/2029 04/18/2019, 10/17/2008Lipids for age 45-, 02/07/2024, 08/13/2022, Additional history existsHepatitis C screening for age 18-79 Jpyfjddbv56/17/2007Zoster (shingles) series for age 50+Rrqtnkvsx18/03/2020, 07/23/2019Pneumococcal series for age 50+Kzahwekir79/01/2020, 04/18/2019, 10/17/2008AA screening age 65-01Tddfhiwnp00/09/2023Hepatitis B series for 19+ Aged OutNo longer eligible based on patient's age to complete this topic Procedures Procedure NamePriorityDate/TimeAssociated DiagnosisCommentsSCAN- OPERATIVE/PROCEDURE DIGHIQ1308/19/2025 12:00 AM MANAGING CONSULTANT SCAN-OPERATIVE/PROCEDURE JWFFZU9307/12/2025 12:00 AM MANAGING CONSULTANT SCAN-OPERATIVE/PROCEDURE APSBOO7606/07/2025 12:00 AM CDT LIPID PANEL W REFLEX MEASURED AHKUlfdnag58/24/2025 3:24 PM CDT Hyperlipidemia, unspecified hyperlipidemia type US ABD AORTA GSQDEKUQYGtdewtd89/09/2023 10:18 AM MANAGING CONSULTANT Personal history of tobacco use, presenting hazards to health OCCULT BLOOD IFOBT XFLUITqgotrc53/22/2019 10:00 AM CDT Screening for colon cancer ANTI HCVEarly AM10/15/2006 6:25 AM MANAGING CONSULTANT from Last 3 Months or Most Recently Relevant to Health Maintenance Results * SCAN-OPERATIVE/PROCEDURE REPORT (08/19/2025 12:00 AM MANAGING CONSULTANT) Narrative Authorizing ProviderResult TypeResult StatusScannerOTHERFinal Result * SCAN-OPERATIVE/PROCEDURE REPORT (07/12/2025 12:00 AM MANAGING CONSULTANT) Narrative Authorizing ProviderResult TypeResult StatusScannerOTHERFinal Result * SCAN-OPERATIVE/PROCEDURE REPORT (06/07/2025 12:00 AM CDT) Narrative Authorizing ProviderResult TypeResult StatusScannerOTHERFinal Result * (ABNORMAL) LIPID PANEL W REFLEX MEASURED LDL (03/21/2025 3:24 PM CDT)Component ValueRef RangeTest MethodAnalysis TimePerformed AtPathologist Signature CHOLESTEROL, EIEPI354<200 mg/dLQuest CoverMe-Deng DaleHDL VAJJVFIGXXZ48> OR = 40 mg/dLQuest Diagnostics-Wood WcmaVFTAPGBXJWHWW784(H)<150 mg/dLQuest Diagnostics-Deng DaleLDL-PKZPVPIQRQW89wn/dL (calc)[facility] Comment: Reference range: <100 Desirable range <100 mg/dL for primary prevention; <70 mg/dL for patients with CHD or diabetic patients with > or = 2 CHD risk factors. LDL-C is now calculated using the Dodie calculation, which is a validated novel method providing better accuracy than the Friedewald equation in the estimation of LDL-C. Charanjit SS et al. MICHELLE. 2013;310(19): 7140-9158 (http://education.Qualtrics/faq/JGT354) CHOL/HDLC RATIO3.7<5.0 (calc)[facility]Deng McelroyeNON HDL YJSWNVDRMRO923 <130 mg/dL (calc)[facility]eng McelroyeComment: For patients with diabetes plus 1 major ASCVD risk factor, treating to a non-HDL-C goal of <100 mg/dL (LDL-C of <70 mg/dL) is considered a therapeutic option. Specimen (Source)Anatomical Location / LateralityCollection Method / Volume Collection TimeReceived TimeBloodBLOOD SPECIMEN / Bgncxcp8803/21/2025 3:24 PM CDT 03/21/2025 3:25 PM CDT Narrative Authorizing ProviderResult TypeResult StatusWilljose antonio Do MDCHEMISTRY Final ResultPerforming OrganizationAddressCity/State/ZIP CodePhone Number [employer] [facility] [address] [place] [address], [place] [phone] [facility] [address] [place] [address] * US ABD AORTA SCREENING [[id number]] (09/06/2022 10:18 AM MANAGING CONSULTANT)Anatomical Region LateralityModalityAbdomen, AORTAUltrasoundSpecimen (Source)Anatomical Location / LateralityCollection Method / VolumeCollection TimeReceived Time09/06/2022 4:09 PM MANAGING CONSULTANT Narrative 09/06/2022 4:09 PM MANAGING CONSULTANT For Patients: As a result of the Cures Act, medical imaging exams and procedure reports are released immediately into your electronic medical record. You may view this report before your referring provider. If you have questions, please contact your health [...] Dictated by Jaspreet Lemos MD @ Aug ??2022 ??4:09PM (Electronically Signed) ?? Procedure Note Jaspreet [...] @ Sep 06 2022 4:09PM (Electronically Signed) Authorizing ProviderResult TypeResult StatusWilliam Stoney Do MDUSFinal Result * OCCULT BLOOD IFOBT STOOL (04/19/2019 10:00 AM CDT)ComponentValueRef RangeTest MethodAnalysis TimePerformed AtPathologist SignatureSTOOL BLOOD ,IFOBTNegative Vitlqyzn38/22/2019 11:00 AM [facility]ENTERpecimen (Source)Anatomical Location / LateralityCollection Method / VolumeCollection TimeReceived TimeStoolSTOOL SPECIMEN / UnknownNon-Blood / Brbheta4604/19/2019 10:00 AM CDT04/19/2019 10:52 AM CDT Narrative Authorizing ProviderResult TypeResult StatusWisy Do MDLABORATORY Final ResultPerforming OrganizationAddressCity/State/ZIP CodePhone Number [facility] [address] [place] [address], * ANTI HCV (10/15/2006 6:25 AM MANAGING CONSULTANT)ComponentValueRef RangeTest MethodAnalysis TimePerformed AtPathologist SignatureANTI HCVNon-reactiveMESSM HEALTH ST[facility] Specimen (Source)Anatomical Location / LateralityCollection Method / Volume Collection TimeReceived TimeBlood specimen (specimen)BLOOD SPECIMEN / Unknown 10/15/2006 6:25 AM CST10/14/2006 10:00 PM MANAGING CONSULTANT Narrative [facility] - 10/19/2006 1:19 PM MANAGING CONSULTANT Testing Performed By [place], [place] Authorizing ProviderResult TypeResult StatusDamagalis Francois MDSEND OUTSFinal ResultPerforming OrganizationAddressCity/State/ZIP CodePhone Number [facility] [address] [place] [address] from Last 3 Months or Most Recently Relevant to Health Maintenance Insurance Advance Directives * Full Code (Latest Code Status on File) Date ActivatedDate InactivatedComments10/13/2006 6:45 AM10/15/2006 4:17 PM Care Teams Team MemberRelationshipSpecialtyStart DateEnd Date Votel, Alen Lua MD [address] [place] [address] PCP - GeneralFamily Practice05/18/23
[2025-08-22 06:29] VITALS: BP 160/95; PULSE 67; RESP 18; TEMP 37.1; O2SAT 96; BMI 21.6
--- NOTE | 2025-08-22 06:45 | ED.MALEGU ---
HPI - Male Genitourinary General Time Seen by Provider: 06:46 Date Seen: 08/22/25 Chief complaint: Urogenital Problems, Male Stated complaint: catheter issue Time Seen by Provider: 08/22/25 06:50 Source: patient and RN notes reviewed Mode of arrival: ambulatory Limitations: no limitations History of Present Illness HPI Narrative: This 74-year-old male is coming in with plugged Gastelum catheter. Since midnight, has not noted any drainage. He had his catheter changed 6 days ago on Tuesday at [facility] without issues. There is no trauma. No fevers or chills. He has been feeling fine, has had no concerns with infection. I do question him if he has been noticing blood in his catheter, he has just a very small amount of reddish tinged urine in his bag. He states this last catheter change he did get a little bleeding afterward. Catheter is in place for prostate hypertrophy per his report. He is feeling uncomfortable, has abdominal pressure. No blood thinners noted on his med rec. Related Data Home Medications ?Medication ?Instructions ?Recorded ?Confirmed atorvastatin 40 mg tablet 40 mg PO DAILY 12/12/22 12/21/22 lisinopril 5 mg tablet 5 mg PO DAILY 12/12/22 12/21/22 metoprolol tartrate 25 mg tablet 25 mg PO BID 12/12/22 12/21/22 Previous Rx's ?Medication ?Instructions ?Recorded tamsulosin 0.4 mg capsule (Flomax) 0.4 mg PO DAILY #14 caps 12/12/22 cephalexin 500 mg capsule 500 mg PO QID #28 caps 03/12/23 furosemide 20 mg tablet (Lasix) 20 mg PO DAILY #10 tabs 06/27/24 Allergies Allergy/AdvReac Type Severity Reaction Status Date / Time No Known Drug Allergies Allergy Verified 12/12/22 18:28 Review of Systems Narrative: As per HPI. PFSH PFS Medical History Acute myocardial infarction ?I21.9 - Acute myocardial infarction, unspecified (ICD-10) CAD (coronary artery disease) ?I25.10 - Atherosclerotic heart disease of [place] coronary artery without angina pectoris (ICD-10) Hypertension ?I10 - Essential (primary) hypertension (ICD-10) Surgical History History of PTCA ?Z98.61 - Coronary angioplasty status (ICD-10) History of hernia repair ?Z98.890 - Other specified postprocedural states (ICD-10) ?Z87.19 - Personal history of other diseases of the digestive system (ICD-10) History of tonsillectomy ?Z90.89 - Acquired absence of other organs (ICD-10) Social History Smoking Status: Current some day smoker What tobacco products do you use: cigars Do you use any of these nicotine containing products: None Second hand tobacco smoke exposure: No How often do you have a drink containing alcohol: 4 or more times a week How many standard drinks containing alcohol do you have on a typical day: 1 or 2 How often do you have six or more drinks on one occasion: Never AUDIT-C Alcohol total score: 4 Non-prescribed substance use: denies use service: No Exam Const: Vital Signs, click to edit/add: Vital Signs - 24 hr 08/22/25 06:29 Temperature 98.7 F Pulse Rate [Right Pulse Oximeter] 67 Respiratory Rate 18 Blood Pressure [Ri ght Upper Arm] 160/95 H Pulse Oximetry 96 Oxygen Delivery Me thod Room Air This 74-year-old male is alert, interactive, no apparent distress. CV regular rate and rhythm, lungs clear. Abdomen has a umbilical hernia which is nontender, reducible. Has suprapubic fullness and tenderness on palpation. There is a little scant amount reddish urine in his bag. Documenting provider has reviewed patient's vital signs: yes Course Course ED Course: Will have nursing staff attempt flushing the catheter. If that does not work, we are going to need to replace the Gastelum catheter. Will not do urinalysis as he has no symptoms of infection. Does sound like there may have been a little trauma with the change and suspect that he potentially could have little blood clot obstructing urine flow. Reevaluation(s) Time of Reevaluation #1: 07:06 Reevaluation #1: Nursing staff was able to open up the Gastelum catheter with minimal flushing. It is draining effectively now. Patient is quite happy about this, is feeling much better. Vital Signs Vital signs: Initial Vital Signs Temperature 98.7 F 08/22/25 06:29 Temperature Source Temporal Artery Scan 08/22/25 06:29 Pulse Rate 67 08/22/25 06:29 Respiratory Rate 18 08/22/25 06:29 Blood Pressure 160/95 H 08/22/25 06:29 Blood Pressure Mean 116 H 08/22/25 06:29 Blood Pressure Position Sitting 08/22/25 06:29 Pulse Oximetry 96 08/22/25 06:29 Oxygen Delivery Method Room Air 08/22/25 06:29 Vital Signs Temperature 98.7 F 08/22/25 06:29 Pulse Rate 67 08/22/25 06:29 Respiratory Rate 18 08/22/25 06:29 Blood Pressure 160/95 H 08/22/25 06:29 Pulse Oximetry 96 08/22/25 06:29 Oxygen Delivery Method Room Air 08/22/25 06:29 Temperature 98.7 F 08/22/25 06:29 Pulse Rate 67 08/22/25 06:29 Respiratory Rate 18 08/22/25 06:29 Blood Pressure 160/95 H 08/22/25 06:29 Pulse Oximetry 96 08/22/25 06:29 Oxygen Delivery Method Room Air 08/22/25 06:29 Discharge Plan Discharge Clinical Impression: Complication, blocked Gastelum catheter Qualifiers: Encounter type: initial encounter Qualified Code(s): T83.091A - Other mechanical complication of indwelling urethral catheter, initial encounter Patient Disposition: Home, Self-Care Condition: Stable Instructions: Gastelum Catheter Placement and Care (ED) Additional Instructions: Continue with your routine catheter cares. If you note concern for blocked Gastelum catheter again with lack of urine output, seek re-evaluation. Activity Level: Activity as Tolerated Prescriptions: No Action furosemide [Lasix] 20 mg tablet 20 mg PO DAILY Qty: 10 2RF atorvastatin 40 mg tablet 40 mg PO DAILY lisinopril 5 mg tablet 5 mg PO DAILY metoprolol tartrate 25 mg tablet 25 mg PO BID tamsulosin [Flomax] 0.4 mg capsule 0.4 mg PO DAILY Qty: 14 2RF cephalexin 500 mg capsule 500 mg PO QID Qty: 28 0RF Follow Up/Referrals: Alen Do MD [Primary Care Provider, Family Practice] Stand Alone [facility]: [facility] Inst[facility]
--- OUTSIDE RECORDS SUMMARY | 2025-08-22 07:03 | XMS_ITS | Continuity of Care Document ---
Author Organization [facility], [facility] Address [address] [place] [address] Care Team Providers Care Access Director Name Role Phone SARAHTESHADIA Nguyen Primary Care [...] Organization Details Recorded Time Retention of urine [id number] Active 04/04/[address] [facility] Wxejjff3304/04/2023 16:25:45 Problem Notes None recorded. Procedures Surgical History Date Name Laterality Status Provider Name and Address Organization Details Recorded Time 08/19/2025 Urethral Catheter Change completedLina Craig [facility] Vdpikze49/22/2025 12:26: Urethral Catheter ChangecompletedMarie Jerry [facility] Jbxdjfv96/14/2025 14:16:Urethral Catheter ChangecompletedLina Jerry [facility] Qettinz02/10/2025 15:21:Urethral Catheter ChangecompletedLina Jerry [facility] Yqpotla2504/25/2025 12:21:OMPLEX VISIT completedRebecrichelle Rodriguez - [place] Ndyiodr6703/29/2025 13:07:TRUS- Volume size onlycompletedNegrito Whelan MD [address], [place], [address], [facility] Fugmdqn1304/03/2025 15:14:4907OMPLEX VISITcompletBecky Whelan MD [address], [place], [address], [facility] Ncqokba9803/28/2025 23:35:4007Urethral Catheter Change completedRebecca MirandaMN - [place] Wwbudtu9403/28/2025 14:10:4306 Urethral Catheter ChangecompletedMarie BwanakeyeMN - [place] Qjcvkjx9602/15/2025 12:57:1405Urethral Catheter ChangecompletedMarie BwanakeyeMN - [place] Xckmdyu1301/15/2025 13:07:1604Urethral Catheter ChangecompletedMarie anakeyeMN - [place] Lfxfdle8312/13/2024 14:30:2803Urethral Catheter ChangecompletedMarie BwanakeyeMN - [place] Hbtinwd7111/12/2024 13:51:51 10/03/2024Urethral Catheter ChangecompletedMarie BwanakeyeMN [facility] 10/03/2024 12:25:50110/04/2023Urethral Catheter ChangecompletedMarie BwanakeyeMN - [place] Tqrfuih08/06/2024 11:55:0810Urethral Catheter Change completedMarie BwanakeyeMN - [place] Saukabk51/25/2024 14:33:3809 Urethral Catheter ChangecompletedMarie BwanakeyeMN [facility] Dsxnxzx7705/08/2024 12:43:02003/15/2024Urethral Catheter ChangecompletedMarie BwanakeyeMN - [place] Jfemvld2003/15/2024 16:00:43001/25/2024Urethral Catheter ChangecompletedMarie BwanakeyeMN - [place] Ofioyrf6101/25/2024 12:12:FOLEY CHANGE completedKali FinchMN - [place] Kssymmx3512/26/2023 13:27:3703Urethral Catheter ChangecompletedMarie [facility] [place]/24/2023 11:44:32 10/21/2023Urethral Catheter ChangecompletedMarie [facility] [place] 10/21/2023 11:24:52009/21/2023Urethral Catheter ChangecompletedRebecca Aubrey [facility]09/21/2023 15:24:4608/08/2023Urethral Catheter Change completedKelly [place] 3082910/09/2022 14:43:23110/09/2022 Urodynamic StudiescompletedMary [place] 6299210/09/2022 15:24:4707/08/2023Urethral Catheter Changecompleted[facility]ie [place] 9667309/07/2022 12:32:5210Urethral Catheter ChangecompletedMarie [place] [address] 11:57:0809Urethral Catheter ChangecompletedErica [facility]05/03/2023 11:37:3208 Urethral Catheter ChangecompletedMarie [facility]04/04/2023 16:28:1507Urethral Catheter ChangecompletedSteven [facility]03/07/2023 11:20:0106Urethral Catheter ChangecompletedErica [facility]02/07/2023 14:20:1304Fill and Pull/Voiding Trial/TOVcompletedMindy [facility]Life[facility]12/20/2022 13:04:39repair of right inguinal herniacompletedValerie [facility]09/21/2023 12:44:02 Imaging Results None recorded. Procedure Notes [...] 2ND TABLETactiveNot AvailableNot AvailableNot Availablelisinopril 5 mg ykpnaz2509/21/2023ompletedNot AvailableNot AvailableNot Availablefurosemide 20 mg tabletTAKE 1 TABLET BY MOUTH DAILYactiveNot AvailableNot AvailableNot Availablemetoprolol tartrate 25 mg tabletactiveNot AvailableNot AvailableNot AvailableaspirinactiveNot AvailableNot AvailableNot Available Vitals None Recorded Social History Question Answer Notes LastModified by Organization D etails LastModified Time Tobacco Smoking Status Current Some Day Smoker Alma Vallejo [facility] Qvvwcmr5909/21/2023 12:43:21What Is Your Level Of Caffeine Consumption?ModeratevdreyInformation not pwzjmrlfi53/24/2024What Was The Date Of Your Most Recent Tobacco Screening?08/16/2025ekaznessisInformation not available 08/16/2025Have You Ever Been Counseled For Unhealthy Alcohol Use?Yesekaznessis Information not oiiulpdng13/19/2025How Much Tobacco Do You Smoke?1 PPWekaznessis Information not qmwrwdbyh53/19/2025Has Tobacco Cessation Counseling Been Provided?YesekaznessisInformation not homczpkne07/19/2025On What Date Was Tobacco Cessation Counseling Provided?08/16/2025ekaznessisInformation not xqgqaoavn48/19/2025How Many Days In The Past Year Have You Consumed 5 Or More Drinks?0ekaznessisInformation not rpotqgreh32/19/2025 Sex: Unknown Functional Status Question Answer Note LastModified by Organization D etails LastModified Time Do you use any illicit or recreational drugs? No prugelInformation not fbnemdyiu82/15/2023Do you or have you ever used any other forms of tobacco or nicotine?NoekaznessisInformation not zwwbyhrlf88/19/2025What is your level of alcohol consumption?ModeratevdreyInformation not available 09/21/2023 Mental Status None recorded. Family History Relationship Description Onset Age of this Age Resolved Age Notes LastModified by Organization Details LastModified Time Father Family history of cardiac disord er vdreyNot vasneeifk94/24/2024 12:41:39FatherFamily history of Hypertensionvdrey Not wefikvpmb56/24/2024 12:41:59MotherFamily history of HypertensionvdreyNot gwidgqnqn26/24/2024 12:41:59SisterFamily history of HypertensionvdreyNot jdegjpiyt61/24/2024 12:41:59BrotherFamily history of renal stonevdreyNot foonuoedg14/24/2024 12:42:12 Medical History Condition Response Diabetes N Bleeding Disorder Kidney StonesNGERD/Acid RefluxNHeart DiseaseYCancerNLung DiseaseNDepressionN Immunizations Vaccine Type Date Status Note Provider Nam e and Address Organization Details Recorded Time zoster recombinant 10/01/2019 completed Gabriella fregoso, [facility]05/03/2023 11:36:34zoster ecxmlcxrtcw97/25/2019completed [facility]/2023 11:36:34Influenza, adjuvanted, quadrivalent, PF 05/29/2020completedErthelma Wood [facility]05/03/2023 11:36:34Influenza, adjuvanted, quadrivalent, PF 1completedErthelma Wood [facility]05/03/2023 11:36:34Influenza, adjuvanted, quadrivalent, PF 2completeModesta Wood [facility], [facility]05/03/2023 11:36:34COVID-19, mRNA, LNP-S, PF, 30 mcg/0.3 mL dose11/10/2021ompleteModesta Wood [facility]05/03/2023 11:36:34COVID-19, mRNA, LNP-S, PF, 30 mcg/0.3 mL dose04/28/2021[facility] null, [facility] Tklzbpt8005/03/2023 11:36:34COVID-19, mRNA, LNP-S, PF, 30 mcg/0.3 mL dose06/16/2021ompH[facility] null, [facility] Dzxbkbo8105/03/2023 11:36:34COVID-19, mRNA, LNP-S, bivalent, PF, 30 mcg/0.3 mL dose2completeHuntsman Mental Health Institute null, [facility] Syacrwc3305/03/2023 11:36:34pneumococcal polysaccharide PPV23 10/17/2008[facility], [facility] Enwxrmg9505/03/2023 11:36:34pneumococcal polysaccharide PPV23 05/29/2020com[facility], [facility] Enumahl7405/03/2023 11:36:28Swzi6210/17/2008com[facility], [facility] Gulsuts7005/03/2023 11:36:34Novel Yolhvfdps-R1A0-77, all xdiovwcencmg15/29/2010comAd[facility], [facility]05/03/2023 11:36:34Pneumococcal conjugate PCV 13004/18/2019 [facility], [facility] Nolghym4705/03/2023 11:36:34Influenza, high-dose, trivalent, PF 05/30/2017comAd[facility]Health [facility], [facility] Vajppzf2505/03/2023 11:36:34Influenza, split virus, trivalent, zopjqgpwcxbd59/06/2010[address] null, [facility] Uoykvsi7605/03/2023 11:36:34Influenza, split virus, trivalent, mwioxqutxyqw90/01/2012com[facility] null, [facility] Vjzoiqs2305/03/2023 11:36:34Influenza, split virus, trivalent, tgtvdvganvhn55/16/2005com[facility] null, [facility] Lryshxj9305/03/2023 11:36:34Influenza, split virus, trivalent, mfvtrgsikczb01/19/2007comsam[facility] hospitaledEr[facility] null, [facility] Lklslle1605/03/2023 11:36:34Influenza, split virus, trivalent, gzitpqgfrbiq31/21/2013comsam[facility] hospitaledEr[facility] null, [facility] Oezmrfs4305/03/2023 11:36:34Influenza, split virus, trivalent, tkfsroktmbrl68/29/2006comsam[facility] hospitaledEr[facility] null, [facility] Ypethtd1605/03/2023 11:36:34Influenza, split virus, trivalent, PF 05/23/2009com[facility] null, [facility] Jnusxfj5605/03/2023 11:36:34Influenza, split virus, trivalent, PF 06/14/2011com[facility] [place] null, [facility] Frybvbc9605/03/2023 11:36:34Td (adult), 2 Lf tetanus toxoid, preservative free, eciztshg70/21/2019com[facility] [place] null, [facility]05/03/2023 11:36:34Influenza, split virus, quadrivalent, PF05/17/2016comsam[facility]Er[facility] null, [facility] Cqthvnc5205/03/2023 11:36:34Influenza, split virus, quadrivalent, PF07/07/2018com[facility] [place] null, [facility]05/03/2023 11:36:34Influenza, split virus, quadrivalent, PF07/17/2015com[facility] [place] null, [facility]05/03/2023 11:36:34 Past Encounters Encounter ID Performer Location Encounter Start Date Encounter Closed Date Diagnosis/Indication Diagnosis SNOMED-CT Code Diagnosis ICD10 Code Diagnosis IMO Codes Diagnosis Note [id number] Negrito Whelan MD [facility] [address] [place] [address] 07/12/2025 13:32:37 07/26/2025 14:43:24 Retention of urine 616845304 R33.9 Health Concerns Section Related Observation LastModified by Organization Detai ls LastModified Time None Recorded Concern Status LastModified by Organization Details LastModified Time None Recorded Payers Encounter Date Sequence Insurance Name Policy Number Policy Saucedo Covered Member ID Saucedo Member ID Guarantor Name 07/12/2025 1 [place] MEDIC[place] COST [id number] Pepe Villalobos [id number] Pepe Villalobos Notes Date Note Type Note Provider Name and Address Orga nization Details Recorded Time 07/12/2025 text/html Leo is here for routine cath changePt requested a cath plug.Nurse visit completed by Lina Ta RN.ANA Lane - [place] Ilwnfkr97/14/2025 14:16:31
== END 2025-08-22 07:29 | disposition home or self-care (01) ==
PROVIDERS: Emergency Provider Family Medicine; PCP Family Medicine
DX: T83.098A Other mechanical complication of other urinary catheter, initial encounter (principal)
CPT/HCPCS: 99281; 99282